=== PATIENT | female | born 1955 | race Caucasian/White ===

== ENCOUNTER 2016-11-16 13:19 | Emergency (ER) | payer BC ==
--- NOTE | 2016-11-16 13:23 | EDM.PDOC ---
ED HPI GENERAL MEDICAL PROBLEM - General Stated Complaint: POSSIBLY STROKE Time Seen by Provider: 11/16/16 13:23 Source of Information: Reports: Patient - History of Present Illness INITIAL COMMENTS - FREE TEXT/NARRATIVE: HISTORY AND PHYSICAL: History of present illness: []Patient presents with altered mental status and confusion by private vehicle Her daughter is with her seen her this morning at 9 AM she was doing well enjoying her normal state of health no difficulties whatsoever, on arrival she appears altered she does follow some commands but appears confused and belligerent, almost appearing intoxicated No apparent distress does not provide review of systems Review of systems: As per history of present illness and below otherwise all systems reviewed and negative. Past medical history: As per history of present illness and as reviewed below otherwise noncontributory. Surgical history: As per history of present illness and as reviewed below otherwise noncontributory. Social history: No reported history of drug or alcohol abuse. Family history: As per history of present illness and as reviewed below otherwise noncontributory. Physical exam: HEENT: Atraumatic, normocephalic, pupils reactive, negative for conjunctival pallor or scleral icterus, mucous membranes moist, throat clear, neck supple, nontender, trachea midline. Lungs: Clear to auscultation, breath sounds equal bilaterally, chest nontender. Heart: S1S2, regular, negative for clicks, rubs, or JVD. Abdomen: Soft, nondistended, nontender. Negative for masses or hepatosplenomegaly. Negative for costovertebral tenderness. Pelvis: Stable nontender. Genitourinary: Deferred. Rectal: Deferred. Extremities: Atraumatic, negative for cords or calf pain. Neurovascular unremarkable. Neuro: Awake, alert, oriented. Cranial nerves II through XII unremarkable. Cerebellum unremarkable. Motor and sensory unremarkable throughout. Exam nonfocal. GCS 14 Diagnostics: []Lab as below EKG Chest [address] abdomen pelvis and chest angioma Therapeutics: []Liter normal saline bolus Insulin 10 units IV Labetalol 10 mg IV Aspirin 324 mg chewable After extensive workup patient desires sign out AMA, she is currently lucid at time of discharge is still recommend she be observed her worked up further for stroke with MRI however patient states she has been noncompliant with her medications for several months and states she was faking earlier, I am not entirely convinced of this as apparently she tried to put a pillowcase on for pants while at home but currently she is alert and oriented 4, her daughter who is a nurse practitioner states mom is at her baseline, she will be taken her mother on weekends medical advice as the patient desires to leave she'll be keeping a nonionic mom and follow-up with primary care she can certainly return if symptoms persist or worsen or new concerning symptoms develop however currently mom is back to baseline and states she was malingering Impression: Glascow coma score is 14 []Confusion/AMS Hypertensive emergency Hyperglycemia Chronic history of baseline Definitive disposition and diagnosis as appropriate pending reevaluation and review of above. Headache Pain Score (Numeric/FACES): 0 - Related Data Allergies Allergy/AdvReac Type Severity Reaction Status Date / Time No Known Allergies Allergy Verified 11/16/16 13:36 Home Meds: Home Meds . [Unable to Verify Home Med List] 11/16/16 [History] ED ROS GENERAL - Review of Systems Review Of Systems: ROS reveals no pertinent complaints other than HPI. ED EXAM, GENERAL - Physical Exam Exam: See Below Course - Vital Signs Last Recorded V/S: Last Vital Signs Temp 37.7 C 11/16/16 17:05 Pulse 80 11/16/16 16:28 Resp 16 11/16/16 16:28 BP 177/79 H 11/16/16 17:14 Pulse Ox 97 11/16/16 16:28 - Orders/Labs/Meds Orders: Active Orders 24 hr Category Date Time Status Accu Check [Blood Glucose Check, Bedside] [RC] ONETIME Care 11/16/16 14:49 Active CTA Abd Pelv w Cont [CT] Stat Exams 11/16/16 16:26 Taken Chest 1V Frontal [CR] Stat Exams 11/16/16 13:21 Taken Head wo Cont [CT] Stat Exams 11/16/16 13:21 Taken Sodium Chloride 0.9% [Normal Saline] 1,000 ml Med 11/16/16 16:00 Active IV STAT Medication Orders Sodium Chloride (Normal Saline) 1,000 mls @ 125 mls/hr IV STAT COLLEEN Last Admin: 11/16/16 17:08 Dose: 125 mls/hr Labs: Laboratory Tests 11/16/16 11/16/16 11/16/16 Range/Units 13:22 13:22 13:22 WBC 11.27 H (4.0-11.0) K/uL RBC 5.14 (4.30-5.90) M/uL Hgb 15.3 (12.0-16.0) g/dL Hct 44.2 (36.0-46.0) % MCV 86.0 (80.0-98.0) fL MCH 29.8 (27.0-32.0) pg MCHC 34.6 (31.0-37.0) g/dL RDW Std Deviation 42.9 (28.0-62.0) fl RDW Coeff of [place]air[place] 14 (11.0-15.0) % Plt Count 298 (150-400) K/uL MPV 10.90 (7.40-12.00) fL Neut % (Auto) 84.6 H (48.0-80.0) % Lymph % (Auto) 8.3 L (16.0-40.0) % [place] % (Auto) 4.6 (0.0-15.0) % Eos % (Auto) 2.0 (0.0-7.0) % Baso % (Auto) 0.5 (0.0-1.5) % Neut # (Auto) 9.5 H (1.4-5.7) K/uL Lymph # (Auto) 0.9 (0.6-2.4) K/uL [place] # (Auto) 0.5 (0.0-0.8) K/uL Eos # (Auto) 0.2 (0.0-0.7) K/uL Baso # (Auto) 0.1 (0.0-0.1) K/uL Nucleated RBC % 0.0 /100WBC Nucleated RBCs # 0 K/uL INR 0.96 (0.86-1.11) Sodium 136 (136-146) mmol/L Potassium 3.5 (3.5-5.1) mmol/L Chloride 100 (98-110) mmol/L Carbon Dioxide 24 (21-31) mmol/L BUN 17 (6.0-23.0) mg/dL Creatinine 1.1 (0.6-1.5) mg/dL Est Cr Clr Drug Dosing TNP Estimated GFR (MDRD) 50.5 ml/min Glucose 454 H (60-110) mg/dL POC Glucose (60-110) mg/dL Calcium 9.8 (8.8-10.8) mg/dL Total Bilirubin 0.8 (0.1-1.5) mg/dL AST 19 (5-40) IU/L ALT 25 (8-54) IU/L Alkaline Phosphatase 114 (40-150) Creatine Kinase 57 (9-236) IU/L CK-MB (CK-2) 2.2 (0-6.6) ng/ml Troponin I (0.0-0.29) NG/ML Total Protein 8.6 H (6.0-8.0) g/dL Albumin 4.5 (3.4-4.8) g/dL Globulin 4.1 H (2.0-3.5) g/dL Albumin/Globulin Ratio 1.1 L (1.3-2.8) TSH 3rd Generation 1.36 (0.47-5.0) uIU/mL Urine Color Urine Appearance Urine pH (5.0-8.0) Ur Specific [place] (1.001-1.035) Urine Protein (NEGATIVE) mg/dL Urine Glucose (UA) (NEGATIVE) mg/dL Urine Ketones (NEGATIVE) mg/dL Urine Occult Blood (NEGATIVE) Urine Nitrite (NEGATIVE) Urine Bilirubin (NEGATIVE) Urine Urobilinogen (<2.0) EU/dL Ur Leukocyte Esterase (NEGATIVE) Urine RBC (0-2/HPF) Urine WBC (0-5/HPF) Ur Epithelial Cells (NONE-FEW) Urine Bacteria (NEGATIVE) Urine Opiates Screen (NEGATIVE) Ur Oxycodone Screen (NEGATIVE) Urine Methadone Screen (NEGATIVE) Ur Barbiturates Screen (NEGATIVE) Ur Phencyclidine Scrn (NEGATIVE) Ur Amphetamine Screen (NEGATIVE) U Methamphetamines Scrn (NEGATIVE) U Benzodiazepines Scrn (NEGATIVE) U Cocaine Metab Screen (NEGATIVE) U Marijuana (THC) Screen (NEGATIVE) Ethyl Alcohol < 10.0 mg/dL 11/16/16 11/16/16 11/16/16 Range/Units 13:22 13:25 13:59 WBC (4.0-11.0) K/uL RBC (4.30-5.90) M/uL Hgb (12.0-16.0) g/dL Hct (36.0-46.0) % MCV (80.0-98.0) fL MCH (27.0-32.0) pg MCHC (31.0-37.0) g/dL RDW Std Deviation (28.0-62.0) fl RDW Coeff of [place] (11.0-15.0) % Plt Count (150-400) K/uL MPV (7.40-12.00) fL Neut % (Auto) (48.0-80.0) % Lymph % (Auto) (16.0-40.0) % [place] % (Auto) (0.0-15.0) % Eos % (Auto) (0.0-7.0) % Baso % (Auto) (0.0-1.5) % Neut # (Auto) (1.4-5.7) K/uL Lymph # (Auto) (0.6-2.4) K/uL [place] # (Auto) (0.0-0.8) K/uL Eos # (Auto) (0.0-0.7) K/uL Baso # (Auto) (0.0-0.1) K/uL Nucleated RBC % /100WBC Nucleated RBCs # K/uL INR (0.86-1.11) Sodium (136-146) mmol/L Potassium (3.5-5.1) mmol/L Chloride (98-110) mmol/L Carbon Dioxide (21-31) mmol/L BUN (6.0-23.0) mg/dL Creatinine (0.6-1.5) mg/dL Est Cr Clr Drug Dosing Estimated GFR (MDRD) ml/min Glucose (60-110) mg/dL POC Glucose 404 H (60-110) mg/dL Calcium (8.8-10.8) mg/dL Total Bilirubin (0.1-1.5) mg/dL AST (5-40) IU/L ALT (8-54) IU/L Alkaline Phosphatase (40-150) Creatine Kinase (9-236) IU/L CK-MB (CK-2) (0-6.6) ng/ml Troponin I < 0.10 (0.0-0.29) NG/ML Total Protein (6.0-8.0) g/dL Albumin (3.4-4.8) g/dL Globulin (2.0-3.5) g/dL Albumin/Globulin Ratio (1.3-2.8) TSH 3rd Generation (0.47-5.0) uIU/mL Urine Color Urine Appearance Urine pH (5.0-8.0) Ur Specific [place] (1.001-1.035) Urine Protein (NEGATIVE) mg/dL Urine Glucose (UA) (NEGATIVE) mg/dL Urine Ketones (NEGATIVE) mg/dL Urine Occult Blood (NEGATIVE) Urine Nitrite (NEGATIVE) Urine Bilirubin (NEGATIVE) Urine Urobilinogen (<2.0) EU/dL Ur Leukocyte Esterase (NEGATIVE) Urine RBC (0-2/HPF) Urine WBC (0-5/HPF) Ur Epithelial Cells (NONE-FEW) Urine Bacteria (NEGATIVE) Urine Opiates Screen NEGATIVE (NEGATIVE) Ur Oxycodone Screen NEGATIVE (NEGATIVE) Urine Methadone Screen NEGATIVE (NEGATIVE) Ur Barbiturates Screen NEGATIVE (NEGATIVE) Ur Phencyclidine Scrn NEGATIVE (NEGATIVE) Ur Amphetamine Screen NEGATIVE (NEGATIVE) U Methamphetamines Scrn NEGATIVE (NEGATIVE) U Benzodiazepines Scrn NEGATIVE (NEGATIVE) U Cocaine Metab Screen NEGATIVE (NEGATIVE) U Marijuana (THC) Screen NEGATIVE (NEGATIVE) Ethyl Alcohol mg/dL 11/16/16 11/16/16 Range/Units 13:59 15:05 WBC (4.0-11.0) K/uL RBC (4.30-5.90) M/uL Hgb (12.0-16.0) g/dL Hct (36.0-46.0) % MCV (80.0-98.0) fL MCH (27.0-32.0) pg MCHC (31.0-37.0) g/dL RDW Std Deviation (28.0-62.0) fl RDW Coeff of [place] (11.0-15.0) % Plt Count (150-400) K/uL MPV (7.40-12.00) fL Neut % (Auto) (48.0-80.0) % Lymph % (Auto) (16.0-40.0) % [place] % (Auto) (0.0-15.0) % Eos % (Auto) (0.0-7.0) % Baso % (Auto) (0.0-1.5) % Neut # (Auto) (1.4-5.7) K/uL Lymph # (Auto) (0.6-2.4) K/uL [place] # (Auto) (0.0-0.8) K/uL Eos # (Auto) (0.0-0.7) K/uL Baso # (Auto) (0.0-0.1) K/uL Nucleated RBC % /100WBC Nucleated RBCs # K/uL INR (0.86-1.11) Sodium (136-146) mmol/L Potassium (3.5-5.1) mmol/L Chloride (98-110) mmol/L Carbon Dioxide (21-31) mmol/L BUN (6.0-23.0) mg/dL Creatinine (0.6-1.5) mg/dL Est Cr Clr Drug Dosing Estimated GFR (MDRD) ml/min Glucose (60-110) mg/dL POC Glucose 268 H (60-110) mg/dL Calcium (8.8-10.8) mg/dL Total Bilirubin (0.1-1.5) mg/dL AST (5-40) IU/L ALT (8-54) IU/L Alkaline Phosphatase (40-150) Creatine Kinase (9-236) IU/L CK-MB (CK-2) (0-6.6) ng/ml Troponin I (0.0-0.29) NG/ML Total Protein (6.0-8.0) g/dL Albumin (3.4-4.8) g/dL Globulin (2.0-3.5) g/dL Albumin/Globulin Ratio (1.3-2.8) TSH 3rd Generation (0.47-5.0) uIU/mL Urine Color YELLOW Urine Appearance CLEAR Urine pH 7.0 (5.0-8.0) Ur Specific [place] 1.015 (1.001-1.035) Urine Protein 30 (NEGATIVE) mg/dL Urine Glucose (UA) >=1000 (NEGATIVE) mg/dL Urine Ketones TRACE H (NEGATIVE) mg/dL Urine Occult Blood TRACE-INTACT (NEGATIVE) Urine Nitrite NEGATIVE (NEGATIVE) Urine Bilirubin NEGATIVE (NEGATIVE) Urine Urobilinogen 0.2 (<2.0) EU/dL Ur Leukocyte Esterase NEGATIVE (NEGATIVE) Urine RBC 0-2 (0-2/HPF) Urine WBC 0-1 (0-5/HPF) Ur Epithelial Cells FEW (NONE-FEW) Urine Bacteria FEW (NEGATIVE) Urine Opiates Screen (NEGATIVE) Ur Oxycodone Screen (NEGATIVE) Urine Methadone Screen (NEGATIVE) Ur Barbiturates Screen (NEGATIVE) Ur Phencyclidine Scrn (NEGATIVE) Ur Amphetamine Screen (NEGATIVE) U Methamphetamines Scrn (NEGATIVE) U Benzodiazepines Scrn (NEGATIVE) U Cocaine Metab Screen (NEGATIVE) U Marijuana (THC) Screen (NEGATIVE) Ethyl Alcohol mg/dL Meds: Medications Generic Name Dose Route Start Last Admin Trade Name Freq PRN Reason Stop Dose Admin Sodium Chloride 1,000 mls @ 125 mls/hr 11/16/16 16:00 11/16/16 17:08 Normal Saline IV 125 mls/hr STAT COLLEEN Administration Discontinued Medications Generic Name Dose Route Start Last Admin Trade Name Freq PRN Reason Stop Dose Admin Aspirin 324 mg 11/16/16 14:20 11/16/16 14:26 Aspirin PO 11/16/16 14:21 324 mg ONETIME ONE Administration Sodium Chloride 1,000 mls @ 999 mls/hr 11/16/16 13:53 11/16/16 14:21 Normal Saline IV 11/16/16 14:53 999 mls/hr STAT ONE Administration Insulin Human Regular 10 unit 11/16/16 13:53 11/16/16 14:20 Novolin R IVPUSH 11/16/16 13:54 10 ml ONETIME ONE Administration Protocol Iopamidol 80 ml 11/16/16 15:33 11/16/16 15:34 Isovue Multipack-370 (76%) IVPUSH 11/16/16 15:34 80 ml ONETIME STA Administration Labetalol HCl 10 mg 11/16/16 14:19 11/16/16 14:29 Normodyne IVPUSH 11/16/16 14:20 Not Given .BOLUS ONE Protocol Labetalol HCl Confirm 11/16/16 14:23 11/16/16 14:27 Normodyne Administered 11/16/16 14:24 10 mg Dose Administration 100 mg .ROUTE .STK-MED ONE Labetalol HCl 20 mg 11/16/16 14:48 11/16/16 15:09 Normodyne IVPUSH 11/16/16 14:49 Not Given .BOLUS ONE Protocol Labetalol HCl 20 mg 11/16/16 15:00 11/16/16 15:03 Normodyne IVPUSH 11/16/16 15:01 20 mg .BOLUS ONE Administration Protocol Labetalol HCl 20 mg 11/16/16 15:11 11/16/16 15:21 Normodyne IVPUSH 11/16/16 15:12 20 mg .BOLUS ONE Administration Protocol Lorazepam 1 mg 11/16/16 13:37 11/16/16 14:20 Ativan IVPUSH 11/16/16 13:38 1 mg ONETIME ONE Administration Lorazepam Confirm 11/16/16 13:38 11/16/16 14:21 Ativan Administered 11/16/16 13:39 Not Given Dose 2 mg .ROUTE .STK-MED ONE Departure - Departure Time of Disposition: 18:25 Disposition: Against Medical Advice 07 Condition: Fair Clinical Impression: Hyperglycemia, Noncompliance with medications - Discharge Information Additional Instructions: The following information is given to patients seen in the emergency department who are being discharged to home. This information is to outline your options for follow-up care. We provide all patients seen in our emergency department with a follow-up referral. The need for follow-up, as well as the timing and circumstances, are variable depending upon the specifics of your emergency department visit. If you don't have a primary care physician on staff, we will provide you with a referral. We always advise you to contact your personal physician following an emergency department visit to inform them of the circumstance of the visit and for follow-up with them and/or the need for any referrals to a consulting specialist. The emergency department will also refer you to a specialist when appropriate. This referral assures that you have the opportunity for follow-up care with a specialist. All of these measure are taken in an effort to provide you with optimal care, which includes your follow-up. Under all circumstances we always encourage you to contact your private physician who remains a resource for coordinating your care. When calling for follow-up care, please make the office aware that this follow-up is from your recent emergency room visit. If for any reason you are refused follow-up, please contact the [facility] emergency department at and asked to speak to the emergency department charge nurse. - My Orders Last 24 Hours: My Active Orders 11/16/16 13:21 Chest 1V Frontal [CR] Stat Head wo Cont [CT] Stat 11/16/16 14:49 Accu Check [Blood Glucose Check, Bedside] [RC] ONETIME 11/16/16 16:00 Sodium Chloride 0.9% [Normal Saline] 1,000 ml IV STAT 11/16/16 16:26 CTA Abd Pelv w Cont [CT] Stat - Assessment/Plan Last 24 Hours: My Active Orders 11/16/16 13:21 Chest 1V Frontal [CR] Stat Head wo Cont [CT] Stat 11/16/16 14:49 Accu Check [Blood Glucose Check, Bedside] [RC] ONETIME 11/16/16 16:00 Sodium Chloride 0.9% [Normal Saline] 1,000 ml IV STAT 11/16/16 16:26 CTA Abd Pelv w Cont [CT] Stat
[2016-11-16] MEDS ORDERED: LORazepam 2 MG/ML MDV IVPUSH ONE (13:37)
[2016-11-16] MEDS ORDERED: LORazepam 2 MG/ML MDV ONE (13:38)
[2016-11-16] MEDS ORDERED: Insulin Regular, Human 100 Units/ML 10 ML Vial IVPUSH ONE (13:53)
[2016-11-16] MEDS ORDERED: Sodium Chloride 0.9% 1,000 ML IV ONE (13:53)
[2016-11-16 13:54] LABS: CHLORIDE,CL 100 mmol/L (98-110); SODIUM,NA 136 mmol/L (136-146)
[2016-11-16] MEDS ORDERED: Labetalol 5 MG/ML 5 ML Syringe IVPUSH ONE ×3 (14:19→15:11)
[2016-11-16] MEDS ORDERED: Aspirin 81 MG Tab.Chew PO ONE (14:20)
[2016-11-16] MEDS ORDERED: Labetalol 100 MG/20 ML MDV ONE (14:23)
[2016-11-16] MEDS ORDERED: Labetalol 100 MG/20 ML MDV IVPUSH ONE (15:00)
[2016-11-16] MEDS ORDERED: Iopamidol 755 MG/ML 500 ML Multipack Bottle IVPUSH STA (15:33)
[2016-11-16] MEDS ORDERED: Sodium Chloride 0.9% 1,000 ML IV SCH (16:00)
[2016-11-16 18:47] VITALS: BP 198/91
--- NOTE | 2016-11-18 14:56 | CR ---
EXAM DATE: 11/16/16 PATIENT'S AGE: 61 Patient: JORDYN DUVALL Facility: [place], [place] Site . Site : 1955 Study: XRay Chest [id number] 2:00:49 PM Ordering Physician: Van Millan Final Report: Confusion technique portable chest aorta.Comparison: X-ray 01/16/2012 Findings : Cardiac silhouette is mildly enlarged. Aorta is tortuous and appears changed from the prior study. Pulmonary vascularity is within normal limits appear no acute airspace or interstitial process. Impression: 1. No acute Acute airspace interstitial process. 2. Tortuous aorta which appears changed in the prior study and may reflect thoracic aortic aneurysm. Recommend contrast-enhanced chest CT. Dictated by Denise Florence MD @ Nov 16 2016 2:34PM (Electronic Signature) Report Signed by Proxy. PAWAN
--- NOTE | 2016-11-18 14:57 | CT ---
EXAM DATE: 11/16/16 PATIENT'S AGE: 61 Patient: JORDYN DUVALL Facility: [place], [place] Site . Site : 1955 Study: CT Head STROKE PROTOCOL [id number]/2017 2:04:47 PM Ordering Physician: Van Millan Final Report: Indication: Confusion, disorientation. Stroke protocol. Technique: Contiguous axial images were obtained with 3 mm collimation from the skullbase to the vertex. The patient was unable to remain motionless for the examination and the head was fixated with hand. Beam hardening artifact from the adjacent hand bones markedly limits evaluation of the study. Comparison: CT head 01/16/2012. Findings: The visualized ventricles are midline, symmetric, and are of normal size shape and contour. There is no obvious intracranial hemorrhage but intracranial hemorrhage in the left posterior parietal lobe cannot entirely be excluded. Of the visualized melgar/white matter junction, there is preservation of the junction. There are no obvious masses on this unenhanced CT scan. Evaluation the visualized paranasal sinuses again demonstrates a retention cyst or polyp in the right maxillary sinus measuring 2.5 x 1.5 cm. The remaining visual lies paranasal sinuses and mastoid air cells are normally aerated. Impression: Examination degraded by beam hardening artifact. No obvious in acute intracranial abnormality. If there is continued clinical concern consider repeat examination. Above results abd recommendations were discussed with Dr. Araujo, by telephone , at 2:10 p.m. on 11/15/2016. Please note that all CT scans at this facility use dose modulation, iterative reconstruction, and/or weight-based dosing when appropriate to reduce radiation dose to as low as reasonably achievable. Dictated by Amber Ghosh MD @ Nov 16 2016 2:11PM (Electronic Signature) Report Signed by Proxy. [facility]
--- NOTE | 2016-11-18 15:06 | CT ---
EXAM DATE: 11/16/16 PATIENT'S AGE: 61 Patient: JORDYN DUVALL Facility: [place], [place] Site Site : 1955 Study: CT Chest/Abd/Pelvis Angio -11/16/2016 5:14:37 PM Ordering Physician: ANA LILIA ARREAGA Final Report: INDICATION: Chest pain. TECHNIQUE : CT scan of the chest abdomen and pelvis. Precontrast imaging of the chest. Arterial phase imaging of the chest, abdomen and pelvis for evaluation of the aorta. FINDINGS: Precontrast images of the aorta demonstrate no abnormal intramural hematoma. The thoracic and abdominal aorta are normal caliber. The branches of the aorta are patent. No suspicious intraluminal dissection flap. Heart size is normal. No pericardial or pleural effusions. Lungs are clear. No abdominal mass lesions. No suspicious lymphadenopathy. Unremarkable liver, spleen, pancreas, adrenal glands and kidneys. No dilated bowel loops. No hydronephrosis. The bladder appears unremarkable. Uterus is normal in size. No suspicious skeletal abnormalities. IMPRESSION : No signs for aortic dissection. Mild atherosclerotic plaques in the abdominal aorta. No additional acute findings. Please note that all CT scans at this facility use dose modulation, iterative reconstruction, and/or weight-based dosing when appropriate to reduce radiation dose to as low as reasonably achievable. Dictated by Noah Orozco MD @ Nov 16 2016 5:34PM (Electronic Signature) Report Signed by Proxy. [facility]
== END 2016-11-16 18:34 | disposition left against medical advice (07) ==
LOC: MW.ED 13:19
DX: R73.9 Hyperglycemia, unspecified (principal); I10 Essential (primary) hypertension; R41.82 Altered mental status, unspecified; Z91.14 Patient's other noncompliance with medication regimen
CPT/HCPCS: 36415; 70450; 71010; 74174; 80053; 80306; 81001; 82550; 82553; 82962; 84443; 84484; 85025; 85610; 93005; 96361; 96374; 96375; 96376; 99285; A9270; G0480; J2060; J7040; Q9967; 80305; 99283; J1815-GY

== ENCOUNTER 2017-07-01 14:06 | Emergency (ER) | payer BC ==
[2017-07-01] MEDS ORDERED: Sodium Chloride 0.9% 10 ML Syringe FLUSH PRN (15:00)
[2017-07-01] MEDS ORDERED: Sodium Chloride 0.9% 2.5 ML Syringe FLUSH PRN (15:00)
[2017-07-01] MEDS ORDERED: Lactated Ringers 1,000 ML IV ONE (15:00)
--- NOTE | 2017-07-01 15:24 | EDM.PDOC ---
ED HPI GENERAL MEDICAL PROBLEM - General Chief Complaint: General Stated Complaint: MEDICAL CLEARANCE Time Seen by Provider: 07/01/17 14:35 Source of Information: Reports: Patient History Limitations: Reports: No Limitations - History of Present Illness INITIAL COMMENTS - FREE TEXT/NARRATIVE: History of present illness: []Patient was brought in by police for medical clearance after reckless driving. Patient is a diabetic and has had episodes with infection where she has had psychotic symptoms. Patient had several episodes of vomiting 2 days ago and has not been feeling well. She denies any drug or alcohol use. Review of systems: As per history of present illness and below otherwise all systems reviewed and negative. Past medical history: As per history of present illness and as reviewed below otherwise noncontributory. Surgical history: As per history of present illness and as reviewed below otherwise noncontributory. Social history: No reported history of drug or alcohol abuse. Family history: As per history of present illness and as reviewed below otherwise noncontributory. Physical exam: General: Well developed, well nourished in NAD, answering questions appropriately HEENT: Atraumatic, normocephalic, pupils reactive, negative for conjunctival pallor or scleral icterus, mucous membranes moist, throat clear, neck supple, nontender, trachea midline. Lungs: Clear to auscultation, breath sounds equal bilaterally, chest nontender. Heart: S1S2, regular, negative for clicks, rubs, or JVD. Abdomen: Soft, nondistended, nontender. Negative for masses or hepatosplenomegaly. Negative for costovertebral tenderness. Pelvis: Stable nontender. Genitourinary: Deferred. Rectal: Deferred. Extremities: Atraumatic, negative for cords or calf pain. Neurovascular unremarkable. Neuro: Awake, alert, oriented. Cranial nerves II through XII unremarkable. Cerebellum unremarkable. Motor and sensory unremarkable throughout. Exam nonfocal. Diagnostics: []CBC normal, chemistries BUN/creatinine 74/3.0, CO2 is 23, glucose is 223, lactic acid is negative, urine is negative tox screen positive for PCP Therapeutics: []IV hydrated Impression: []Dehydration, altered mental status, positive PCP on tox screen Plan: []Follow-up with PMD Definitive disposition and diagnosis as appropriate pending reevaluation and review of above. - Related Data Allergies Allergy/AdvReac Type Severity Reaction Status Date / Time No Known Allergies Allergy Verified 07/01/17 14:30 Home Meds: Home Meds . [Unable to Verify Home Med List] 11/16/16 [History] Past Medical History Cardiovascular History: Reports: Angina, Hypertension Genitourinary History: Reports: None Neurological History: Reports: Other (See Below) Other Neuro History: encephalitis Endocrine/Metabolic History: Reports: Diabetes, Type II - Infectious Disease History Infectious Disease History: Reports: Chicken Pox, Shingles - Past Surgical History Cardiovascular Surgical History: Reports: None Female Surgical History: Reports: Section Neurological Surgical History: Reports: None Social & Family History - Family History Family Medical History: Unobtainable - Tobacco Use Smoking Status *Q: Never Smoker - Recreational Drug Use Recreational Drug Use: No ED ROS GENERAL - Review of Systems Review Of Systems: See Below (See history of present illness) ED EXAM, GENERAL - Physical Exam Exam: See Below (See history of present illness) Course - Vital Signs Last Recorded V/S: Last Vital Signs Temp 97.0 F 07/01/17 14:28 Pulse 84 07/01/17 14:28 Resp 18 07/01/17 14:28 BP 187/89 H 07/01/17 14:28 Pulse Ox 93 L 07/01/17 14:28 - Orders/Labs/Meds Orders: Active Orders 24 hr Category Date Time Status DRUG SCREEN, URINE [URCHEM] Stat Lab 07/01/17 16:11 Ordered UA W/MICROSCOPIC [URIN] Stat Lab 07/01/17 16:11 Ordered Sodium Chloride 0.9% [Saline Flush] Med 07/01/17 15:00 Active 10 ml FLUSH ASDIRECTED PRN Sodium Chloride 0.9% [Saline Flush] Med 07/01/17 15:00 Active 2.5 ml FLUSH ASDIRECTED PRN Saline Lock Insert [OM.PC] Stat Oth 07/01/17 15:00 Ordered Medication Orders Sodium Chloride (Saline Flush) 10 ml FLUSH ASDIRECTED PRN PRN Reason: Keep Vein Open Last Admin: 07/01/17 15:26 Dose: 10 ml Sodium Chloride (Saline Flush) 2.5 ml FLUSH ASDIRECTED PRN PRN Reason: Keep Vein Open Last Admin: 07/01/17 15:26 Dose: 2.5 ml Labs: Laboratory Tests 07/01/17 07/01/1707/01/18 Range/Units 14:34 15:13 15:13 WBC 9.71 (4.0-11.0) K/uL RBC 5.45 (4.30-5.90) M/uL Hgb 15.6 (12.0-16.0) g/dL Hct 46.2 H (36.0-46.0) % MCV 84.8 (80.0-98.0) fL MCH 28.6 (27.0-32.0) pg MCHC 33.8 (31.0-37.0) g/dL RDW Std Deviation 44.8 (28.0-62.0) fl RDW Coeff of [place] 15 (11.0-15.0) % Plt Count 241 (150-400) K/uL MPV 10.70 (7.40-12.00) fL Neut % (Auto) 72.4 (48.0-80.0) % Lymph % (Auto) 11.9 L (16.0-40.0) % Teller % (Auto) 12.4 (0.0-15.0) % Eos % (Auto) 2.9 (0.0-7.0) % Baso % (Auto) 0.4 (0.0-1.5) % Neut # (Auto) 7.0 H (1.4-5.7) K/uL Lymph # (Auto) 1.2 (0.6-2.4) K/uL Teller # (Auto) 1.2 H (0.0-0.8) K/uL Eos # (Auto) 0.3 (0.0-0.7) K/uL Baso # (Auto) 0.0 (0.0-0.1) K/uL Nucleated RBC % 0.0 /100WBC Nucleated RBCs # 0 K/uL Lactate 1.4 (0.20-2.00) mmol/L Sodium (136-145) mmol/L Potassium (3.5-5.1) mmol/L Chloride (98-107) mmol/L Carbon Dioxide (21.0-32.0) mmol/L BUN (7.0-18.0) mg/dL Creatinine (0.6-1.0) mg/dL Est Cr Clr Drug Dosing mL/min Estimated GFR (MDRD) ml/min Glucose (74-106) mg/dL POC Glucose 235 H (60-110) mg/dL Calcium (8.5-10.1) mg/dL Total Bilirubin (0.2-1.0) mg/dL AST (15-37) IU/L ALT (14-63) IU/L Alkaline Phosphatase (46-116) U/L Total Protein (6.4-8.2) g/dL Albumin (3.4-5.0) g/dL Globulin (2.0-3.5) g/dL Albumin/Globulin Ratio (1.3-2.8) Urine Color Urine Appearance Urine pH (5.0-8.0) Ur Specific [place] (1.001-1.035) Urine Protein (NEGATIVE) mg/dL Urine Glucose (UA) (NEGATIVE) mg/dL Urine Ketones (NEGATIVE) mg/dL Urine Occult Blood (NEGATIVE) Urine Nitrite (NEGATIVE) Urine Bilirubin (NEGATIVE) Urine Urobilinogen (<2.0) EU/dL Ur Leukocyte Esterase (NEGATIVE) Urine RBC (0-2/HPF) Urine WBC (0-5/HPF) Ur Epithelial Cells (NONE-FEW) Urine Bacteria (NEGATIVE) Urine Opiates Screen (NEGATIVE) Ur Oxycodone Screen (NEGATIVE) Urine Methadone Screen (NEGATIVE) Ur Barbiturates Screen (NEGATIVE) Ur Phencyclidine Scrn (NEGATIVE) Ur Amphetamine Screen (NEGATIVE) U Methamphetamines Scrn (NEGATIVE) U Benzodiazepines Scrn (NEGATIVE) U Cocaine Metab Screen (NEGATIVE) U Marijuana (THC) Screen (NEGATIVE) 07/01/17 07/01/17 07/01/17 Range/Units 15:13 16:11 16:11 WBC (4.0-11.0) K/uL RBC (4.30-5.90) M/uL Hgb (12.0-16.0) g/dL Hct (36.0-46.0) % MCV (80.0-98.0) fL MCH (27.0-32.0) pg MCHC (31.0-37.0) g/dL RDW Std Deviation (28.0-62.0) fl RDW Coeff of [place] (11.0-15.0) % Plt Count (150-400) K/uL MPV (7.40-12.00) fL Neut % (Auto) (48.0-80.0) % Lymph % (Auto) (16.0-40.0) % Teller % (Auto) (0.0-15.0) % Eos % (Auto) (0.0-7.0) % Baso % (Auto) (0.0-1.5) % Neut # (Auto) (1.4-5.7) K/uL Lymph # (Auto) (0.6-2.4) K/uL Teller # (Auto) (0.0-0.8) K/uL Eos # (Auto) (0.0-0.7) K/uL Baso # (Auto) (0.0-0.1) K/uL Nucleated RBC % /100WBC Nucleated RBCs # K/uL Lactate (0.20-2.00) mmol/L Sodium 138 (136-145) mmol/L Potassium 3.7 (3.5-5.1) mmol/L Chloride 101 (98-107) mmol/L Carbon Dioxide 23.0 (21.0-32.0) mmol/L BUN 74 H (7.0-18.0) mg/dL Creatinine 3.0 H (0.6-1.0) mg/dL Est Cr Clr Drug Dosing 15.57 mL/min Estimated GFR (MDRD) 15.9 ml/min Glucose 229 H (74-106) mg/dL POC Glucose (60-110) mg/dL Calcium 9.5 (8.5-10.1) mg/dL Total Bilirubin 0.4 (0.2-1.0) mg/dL AST 14 L (15-37) IU/L ALT 22 (14-63) IU/L Alkaline Phosphatase 83 (46-116) U/L Total Protein 7.5 (6.4-8.2) g/dL Albumin 3.9 (3.4-5.0) g/dL Globulin 3.6 H (2.0-3.5) g/dL Albumin/Globulin Ratio 1.1 L (1.3-2.8) Urine Color YELLOW Urine Appearance CLEAR Urine pH 5.0 (5.0-8.0) Ur Specific [place] >= 1.030 (1.001-1.035) Urine Protein TRACE (NEGATIVE) mg/dL Urine Glucose (UA) NEGATIVE (NEGATIVE) mg/dL Urine Ketones TRACE H (NEGATIVE) mg/dL Urine Occult Blood NEGATIVE (NEGATIVE) Urine Nitrite NEGATIVE (NEGATIVE) Urine Bilirubin NEGATIVE (NEGATIVE) Urine Urobilinogen 0.2 (<2.0) EU/dL Ur Leukocyte Esterase NEGATIVE (NEGATIVE) Urine RBC 0-1 (0-2/HPF) Urine WBC 0-1 (0-5/HPF) Ur Epithelial Cells RARE (NONE-FEW) Urine Bacteria RARE (NEGATIVE) Urine Opiates Screen NEGATIVE (NEGATIVE) Ur Oxycodone Screen NEGATIVE (NEGATIVE) Urine Methadone Screen NEGATIVE (NEGATIVE) Ur Barbiturates Screen NEGATIVE (NEGATIVE) Ur Phencyclidine Scrn POSITIVE (NEGATIVE) Ur Amphetamine Screen NEGATIVE (NEGATIVE) U Methamphetamines Scrn NEGATIVE (NEGATIVE) U Benzodiazepines Scrn NEGATIVE (NEGATIVE) U Cocaine Metab Screen NEGATIVE (NEGATIVE) U Marijuana (THC) Screen NEGATIVE (NEGATIVE) Meds: Medications Generic Name Dose Route Start Last Admin Trade Name Freq PRN Reason Stop Dose Admin Sodium Chloride 10 ml 07/01/17 15:00 07/01/17 15:26 Saline Flush FLUSH 10 ml ASDIRECTED PRN Administration Keep Vein Open Sodium Chloride 2.5 ml 07/01/17 15:00 07/01/17 15:26 Saline Flush FLUSH 2.5 ml ASDIRECTED PRN Administration Keep Vein Open Discontinued Medications Generic Name Dose Route Start Last Admin Trade Name Freq PRN Reason Stop Dose Admin Lactated Ringer's 1,000 mls @ 999 mls/hr 07/01/17 15:00 07/01/17 15:26 Ringers, Lactated IV 07/01/17 16:00 999 mls/hr .BOLUS ONE Administration Departure - Departure Time of Disposition: 16:57 Disposition: Home, Self-Care 01 Condition: Good Clinical Impression: Dehydration, Altered mental status, PCP delusional disorder - Discharge Information Referrals: PCP,None [Primary Care Provider] - Forms: ED Department Discharge Additional Instructions: The following information is given to patients seen in the emergency department who are being discharged to home. This information is to outline your options for follow-up care. We provide all patients seen in our emergency department with a follow-up referral. The need for follow-up, as well as the timing and circumstances, are variable depending upon the specifics of your emergency department visit. If you don't have a primary care physician on staff, we will provide you with a referral. We always advise you to contact your personal physician following an emergency department visit to inform them of the circumstance of the visit and for follow-up with them and/or the need for any referrals to a consulting specialist. The emergency department will also refer you to a specialist when appropriate. This referral assures that you have the opportunity for follow-up care with a specialist. All of these measure are taken in an effort to provide you with optimal care, which includes your follow-up. Under all circumstances we always encourage you to contact your private physician who remains a resource for coordinating your care. When calling for follow-up care, please make the office aware that this follow-up is from your recent emergency room visit. If for any reason you are refused follow-up, please contact the [facility] Emergency Department at and asked to speak to the emergency department charge nurse. Increase fluids follow-up with her primary care within a week. [facility] [address] [place] [address] - My Orders Last 24 Hours: My Active Orders 07/01/17 15:00 Sodium Chloride 0.9% [Saline Flush] 10 ml FLUSH ASDIRECTED PRN Sodium Chloride 0.9% [Saline Flush] 2.5 ml FLUSH ASDIRECTED PRN Saline Lock Insert [OM.PC] Stat 07/01/17 16:11 DRUG SCREEN, URINE [URCHEM] Stat UA W/MICROSCOPIC [URIN] Stat - Assessment/Plan Last 24 Hours: My Active Orders 07/01/17 15:00 Sodium Chloride 0.9% [Saline Flush] 10 ml FLUSH ASDIRECTED PRN Sodium Chloride 0.9% [Saline Flush] 2.5 ml FLUSH ASDIRECTED PRN Saline Lock Insert [OM.PC] Stat 07/01/17 16:11 DRUG SCREEN, URINE [URCHEM] Stat UA W/MICROSCOPIC [URIN] Stat
[2017-07-01 17:28] VITALS: BP 174/90
== END 2017-07-01 17:25 | disposition home or self-care (01) ==
LOC: MW.ED 14:06
DX: E86.0 Dehydration (principal); R41.82 Altered mental status, unspecified; F16.950 Hallucinogen use, unspecified with hallucinogen-induced psychotic disorder with delusions; E11.9 Type 2 diabetes mellitus without complications; I10 Essential (primary) hypertension
CPT/HCPCS: 36415; 80053; 80305; 81001; 82962; 83605; 85025; 96360; 96361; 99283; J7120

== ENCOUNTER 2019-09-09 21:32 | Inpatient (IN) | payer BC, OTHER, SELFPAY ==
[2019-09-09] MEDS ORDERED: Sodium Chloride 0.9% 10 ML SDV IV PRN (21:34)
[2019-09-09] MEDS ORDERED: Sodium Chloride 0.9% 2.5 ML Syringe FLUSH PRN (21:34)
[2019-09-09] MEDS ORDERED: Sodium Chloride 0.9% 10 ML Syringe FLUSH PRN (21:34)
[2019-09-09] MEDS ORDERED: diphenhydrAMINE 50 MG/ML SDV ONE (22:13)
[2019-09-09] MEDS ORDERED: LORazepam 2 MG/ML SDV ONE (22:13)
[2019-09-09 22:14] LABS: BLOOD UREA NITROGEN,BUN 29 mg/dL (7.0-18.0); CHLORIDE,CL 105 mmol/L (98-107); GLUCOSE RANDOM 172 mg/dL (74-106); POTASSIUM,K 3.5 mmol/L (3.5-5.1); SODIUM,NA 145 mmol/L (136-145)
[2019-09-09] MEDS ORDERED: diphenhydrAMINE 50 MG/ML SDV IVPUSH ONE (22:14)
[2019-09-09] MEDS ORDERED: LORazepam 2 MG/ML SDV IVPUSH ONE (22:14)
--- NOTE | 2019-09-09 22:18 | EDM.PDOC ---
ED HPI GENERAL MEDICAL PROBLEM - General Chief Complaint: Neuro Symptoms/Deficits Stated Complaint: EMS ARRIVAL Time Seen by Provider: 09/09/19 21:34 Source of Information: Reports: Patient, EMS History Limitations: Reports: Altered Mental Status - History of Present Illness INITIAL COMMENTS - FREE TEXT/NARRATIVE: History of present illness: [Patient is 63-year-old female presents by EMS for altered mental status. Neighbor called EMS because the patient was wandering around his front yard and then spent time sitting on her chair on her porch and appeared to be confused. EMS reports that the patient has some slurred speech and occasionally can answer questions appropriately, she knows who she is and what city she is in but she cannot really hold a conversation beyond that. She denies pain anywhere specifically. Unknown last known well. Patient denies any falls or major trauma or any other specific complaints.] Review of systems: As per history of present illness and below otherwise all systems reviewed and negative. Past medical history: As per history of present illness and as reviewed below otherwise noncontributory. Surgical history: As per history of present illness and as reviewed below otherwise noncontributory. Social history: No reported history of drug or alcohol abuse. Family history: As per history of present illness and as reviewed below otherwise noncontributory. Physical exam: General: Awake, alert, no acute distress, A&O X2. Appears confused, answers some questions appropriately but is not conversational and follows commands only intermittently HEENT: Atraumatic, normocephalic, pupils reactive, negative for conjunctival pallor or scleral icterus, mucous membranes moist, throat clear, neck supple, nontender, trachea midline. Lungs: Clear to auscultation, breath sounds equal bilaterally, chest nontender. Heart: RRR, normal S1S2, no JVD. Abdomen: Soft, nondistended, nontender. Negative for masses or hepatosplenomegaly. Negative for costovertebral tenderness. Pelvis: Stable nontender. Genitourinary: Deferred. Rectal: Deferred. Extremities: Atraumatic, no edema, Neurovascular unremarkable. Neuro: Motor and sensory grossly intact throughout. Exam nonfocal. NIH 0. Diagnostics: [] Therapeutics: [] Impression: [] Plan: [] Definitive disposition and diagnosis as appropriate pending reevaluation and review of above. - Related Data Allergies Allergy/AdvReac Type Severity Reaction Status Date / Time No Known Allergies Allergy Verified 07/01/17 14:30 Home Meds: Home Meds . [Unable to Verify Home Med List] 11/16/16 [History] Past Medical History Cardiovascular History: Reports: Angina, Hypertension Genitourinary History: Reports: None Neurological History: Reports: Other (See Below) Other Neuro History: encephalitis Endocrine/Metabolic History: Reports: Diabetes, Type II - Infectious Disease History Infectious Disease History: Reports: Chicken Pox, Shingles - Past Surgical History Cardiovascular Surgical History: Reports: None Female Surgical History: Reports: Section Neurological Surgical History: Reports: None Social & Family History - Family History Family Medical History: Unobtainable - Tobacco Use Smoking Status *Q: Unknown Ever Smoked ED ROS GENERAL - Review of Systems Review Of Systems: Comprehensive ROS is negative, except as noted in HPI. ED EXAM, NEURO - Physical Exam Exam: See Below (see h and p) Course - Vital Signs Last Recorded V/S: Last Vital Signs Temp 37.0 C 09/09/19 21:32 Pulse 56 L 09/09/19 23:59 Resp 14 09/09/19 23:59 BP 157/87 H 09/09/19 23:59 Pulse Ox 97 09/09/19 23:59 - Orders/Labs/Meds Orders: Active Orders 24 hr Category Date Time Status Assess Neurological Status [RC] ASDIRECTED Care 09/09/19 21:34 Active Bedrest [RC] ASDIRECTED Care 09/09/19 21:34 Active Blood Glucose Check, Bedside [RC] STAT Care 09/09/19 21:34 Active Cardiac Monitoring [RC] . DIRECTED Care 09/09/19 21:34 Active EKG Documentation Completion [RC] STAT Care 09/09/19 21:34 Active Height and Weight [RC] UPON Care 09/09/19 21:34 Active Initiate Acute Stroke Protocol [RC] STAT Care 09/09/19 21:34 Active NIH Stroke Scale [RC] ASDIRECTED Care 09/09/19 21:34 Active Nursing Bedside Swallow Screen [RC] ASDIRECTED Care 09/09/19 21:34 Active Oxygen Therapy [RC] ASDIRECTED Care 09/09/19 21:34 Active Stroke Education, General [RC] Click to Edit Care 09/09/19 21:34 Active Vital Signs [RC] Q15M Care 09/09/19 21:34 Active Sodium Chloride 0.9% [Saline Flush] Med 09/09/19 21:34 Active 10 ml FLUSH ASDIRECTED PRN Sodium Chloride 0.9% [Saline Flush] Med 09/09/19 21:34 Active 2.5 ml FLUSH ASDIRECTED PRN Peripheral IV Insertion Adult [OM.PC] Stat Oth 09/09/19 21:34 Ordered Peripheral IV Insertion Adult [OM.PC] Stat Ot 09/09/19 21:34 Ordered Medication Orders Sodium Chloride (Normal Saline) 1,000 mls @ 125 mls/hr IV ASDIRECTED COLLEEN Last Admin: 09/10/19 02:18 Dose: 125 mls/hr Sodium Chloride (Saline Flush) 10 ml FLUSH ASDIRECTED PRN PRN Reason: Keep Vein Open Last Admin: 09/09/19 22:17 Dose: 10 ml Sodium Chloride (Saline Flush) 2.5 ml FLUSH ASDIRECTED PRN PRN Reason: Keep Vein Open Last Admin: 09/09/19 22:17 Dose: 2.5 ml Labs: Laboratory Tests 09/09/19 09/09/19 09/09/19 Range/Units 21:34 21:34 21:34 WBC 13.81 H (4.0-11.0) K/uL RBC 5.06 (4.30-5.90) M/uL Hgb 15.2 (12.0-16.0) g/dL Hct 44.7 (36.0-46.0) % MCV 88.3 (80.0-98.0) fL MCH 30.0 (27.0-32.0) pg MCHC 34.0 (31.0-37.0) g/dL RDW Std Deviation 44.1 (28.0-62.0) fl RDW Coeff of [place] 14 (11.0-15.0) % Plt Count 237 (150-400) K/uL MPV 11.70 (7.40-12.00) fL Neut % (Auto) 82.6 H (48.0-80.0) % Lymph % (Auto) 8.3 L (16.0-40.0) % [place] % (Auto) 8.9 (0.0-15.0) % Eos % (Auto) 0.1 (0.0-7.0) % Baso % (Auto) 0.1 (0.0-1.5) % Neut # (Auto) 11.4 H (1.4-5.7) K/uL Lymph # (Auto) 1.1 (0.6-2.4) K/uL [place] # (Auto) 1.2 H (0.0-0.8) K/uL Eos # (Auto) 0.0 (0.0-0.7) K/uL Baso # (Auto) 0.0 (0.0-0.1) K/uL Nucleated RBC % 0.0 /100WBC Nucleated RBCs # 0 K/uL INR 0.99 APTT 25.8 (18.6-31.3) SEC Sodium 145 (136-145) mmol/L Potassium 3.5 (3.5-5.1) mmol/L Chloride 105 (98-107) mmol/L Carbon Dioxide 25.0 (21.0-32.0) mmol/L BUN 29 H (7.0-18.0) mg/dL Creatinine 1.7 H (0.6-1.0) mg/dL Est Cr Clr Drug Dosing 29.25 mL/min Estimated GFR (MDRD) 30.4 ml/min Glucose 172 H (74-106) mg/dL Calcium 9.6 (8.5-10.1) mg/dL Total Bilirubin 1.2 H (0.2-1.0) mg/dL AST 16 (15-37) IU/L ALT 18 (14-63) IU/L Alkaline Phosphatase 82 (46-116) U/L Troponin I < 0.050 (0.000-0.056) ng/mL Total Protein 7.7 (6.4-8.2) g/dL Albumin 3.2 L (3.4-5.0) g/dL Globulin 4.5 H (2.6-4.0) g/dL Albumin/Globulin Ratio 0.7 L (0.9-1.6) TSH 3rd Generation 1.92 (0.36-3.74) uIU/mL Urine Color Urine Appearance Urine pH (5.0-8.0) Ur Specific [place] (1.001-1.035) Urine Protein (NEGATIVE) mg/dL Urine Glucose (UA) (NEGATIVE) mg/dL Urine Ketones (NEGATIVE) mg/dL Urine Occult Blood (NEGATIVE) Urine Nitrite (NEGATIVE) Urine Bilirubin (NEGATIVE) Urine Urobilinogen (<2.0) EU/dL Ur Leukocyte Esterase (NEGATIVE) Urine RBC (0-2/HPF) Urine WBC (0-5/HPF) Ur Epithelial Cells (NONE-FEW) Urine Bacteria (NEGATIVE) Urine Opiates Screen (NEGATIVE) Ur Oxycodone Screen (NEGATIVE) Urine Methadone Screen (NEGATIVE) Ur Barbiturates Screen (NEGATIVE) Ur Phencyclidine Scrn (NEGATIVE) Ur Amphetamine Screen (NEGATIVE) U Methamphetamines Scrn (NEGATIVE) U Benzodiazepines Scrn (NEGATIVE) U Cocaine Metab Screen (NEGATIVE) U Marijuana (THC) Screen (NEGATIVE) Ethyl Alcohol 4 mg/dL 09/10/19 09/10/19 Range/Units 00:10 00:10 WBC (4.0-11.0) K/uL RBC (4.30-5.90) M/uL Hgb (12.0-16.0) g/dL Hct (36.0-46.0) % MCV (80.0-98.0) fL MCH (27.0-32.0) pg MCHC (31.0-37.0) g/dL RDW Std Deviation (28.0-62.0) fl RDW Coeff of [place] (11.0-15.0) % Plt Count (150-400) K/uL MPV (7.40-12.00) fL Neut % (Auto) (48.0-80.0) % Lymph % (Auto) (16.0-40.0) % [place] % (Auto) (0.0-15.0) % Eos % (Auto) (0.0-7.0) % Baso % (Auto) (0.0-1.5) % Neut # (Auto) (1.4-5.7) K/uL Lymph # (Auto) (0.6-2.4) K/uL [place] # (Auto) (0.0-0.8) K/uL Eos # (Auto) (0.0-0.7) K/uL Baso # (Auto) (0.0-0.1) K/uL Nucleated RBC % /100WBC Nucleated RBCs # K/uL INR APTT (18.6-31.3) SEC Sodium (136-145) mmol/L Potassium (3.5-5.1) mmol/L Chloride (98-107) mmol/L Carbon Dioxide (21.0-32.0) mmol/L BUN (7.0-18.0) mg/dL Creatinine (0.6-1.0) mg/dL Est Cr Clr Drug Dosing mL/min Estimated GFR (MDRD) ml/min Glucose (74-106) mg/dL Calcium (8.5-10.1) mg/dL Total Bilirubin (0.2-1.0) mg/dL AST (15-37) IU/L ALT (14-63) IU/L Alkaline Phosphatase (46-116) U/L Troponin I (0.000-0.056) ng/mL Total Protein (6.4-8.2) g/dL Albumin (3.4-5.0) g/dL Globulin (2.6-4.0) g/dL Albumin/Globulin Ratio (0.9-1.6) TSH 3rd Generation (0.36-3.74) uIU/mL Urine Color YELLOW Urine Appearance CLEAR Urine pH 5.5 (5.0-8.0) Ur Specific [place] 1.015 (1.001-1.035) Urine Protein 100 H (NEGATIVE) mg/dL Urine Glucose (UA) 500 H (NEGATIVE) mg/dL Urine Ketones NEGATIVE (NEGATIVE) mg/dL Urine Occult Blood TRACE-INTACT H (NEGATIVE) Urine Nitrite NEGATIVE (NEGATIVE) Urine Bilirubin NEGATIVE (NEGATIVE) Urine Urobilinogen 0.2 (<2.0) EU/dL Ur Leukocyte Esterase NEGATIVE (NEGATIVE) Urine RBC 0-2 (0-2/HPF) Urine WBC 0-1 (0-5/HPF) Ur Epithelial Cells RARE (NONE-FEW) Urine Bacteria RARE (NEGATIVE) Urine Opiates Screen NEGATIVE (NEGATIVE) Ur Oxycodone Screen NEGATIVE (NEGATIVE) Urine Methadone Screen NEGATIVE (NEGATIVE) Ur Barbiturates Screen NEGATIVE (NEGATIVE) Ur Phencyclidine Scrn NEGATIVE (NEGATIVE) Ur Amphetamine Screen NEGATIVE (NEGATIVE) U Methamphetamines Scrn NEGATIVE (NEGATIVE) U Benzodiazepines Scrn NEGATIVE (NEGATIVE) U Cocaine Metab Screen NEGATIVE (NEGATIVE) U Marijuana (THC) Screen NEGATIVE (NEGATIVE) Ethyl Alcohol mg/dL Meds: Medications Generic Name Dose Route Start Last Admin Trade Name Freq PRN Reason Stop Dose Admin Sodium Chloride 1,000 mls @ 125 mls/hr 09/10/19 01:45 09/10/19 02:18 Normal Saline IV 125 mls/hr ASDIRECTED COLLEEN Administration Sodium Chloride 10 ml 09/09/19 21:34 09/09/19 22:17 Saline Flush FLUSH 10 ml ASDIRECTED PRN Administration Keep Vein Open Sodium Chloride 2.5 ml 09/09/19 21:34 09/09/19 22:17 Saline Flush FLUSH 2.5 ml ASDIRECTED PRN Administration Keep Vein Open Discontinued Medications Generic Name Dose Route Start Last Admin Trade Name Bridget PRN Reason Stop Dose Admin Diphenhydramine HCl 25 mg 09/09/19 22:14 09/09/19 22:17 Benadryl IVPUSH 09/09/19 22:15 25 mg ONETIME ONE Administration Diphenhydramine HCl Confirm 09/09/19 22:13 09/09/19 22:18 Benadryl Administered 09/09/19 22:14 Not Given Dose 50 mg .ROUTE .STK-MED ONE Sterile Water Confirm 09/09/19 22:49 Sterile Water For Injection Administered 09/09/19 22:50 Dose 20 mls @ as directed .ROUTE .STK-MED ONE Iopamidol 100 ml 09/09/19 22:24 09/09/19 22:24 Isovue-370 (76%) IVPUSH 09/09/19 22:25 100 ml ONETIME ONE Administration Labetalol HCl 20 mg 09/09/19 22:43 09/09/19 22:55 Normodyne IVPUSH 09/09/19 22:44 20 mg ONETIME ONE Administration Protocol Lorazepam 1 mg 09/09/19 22:14 09/09/19 22:16 Ativan IVPUSH 09/09/19 22:15 1 mg ONETIME ONE Administration Lorazepam Confirm 09/09/19 22:13 09/09/19 22:18 Ativan Administered 09/09/19 22:14 Not Given Dose 2 mg .ROUTE .STK-MED ONE Sodium Chloride 10 ml 09/09/19 21:34 Normal Saline IV ASDIRECTED PRN IV Use Sterile Water 1.2 ml 09/09/19 22:43 09/09/19 23:53 Sterile Water For Injection INJECT 09/09/19 22:44 1.2 ml ONETIME ONE Administration Ziprasidone 20 mg 09/09/19 22:43 09/09/19 23:07 Geodon IM 09/09/19 22:44 20 mg ONETIME ONE Administration Ziprasidone Confirm 09/09/19 22:43 09/09/19 23:53 Geodon Administered 09/09/19 22:44 Not Given Dose 20 mg .ROUTE .STK-MED ONE Departure - Departure Time of Disposition: 23:45 Disposition: Admitted As Inpatient 66 Condition: Fair Clinical Impression: Altered mental status - Discharge Information Sepsis Event Note (ED) - Evaluation Sepsis Screening Result: No Definite Risk - Focused Exam Vital Signs: Vital Signs Temp Pulse Resp BP Pulse Ox 09/09/19 23:59 56 L 14 157/87 H 97 09/09/19 23:55 60 157/87 H 09/09/19 23:15 18 189/113 H 94 L 09/09/19 22:33 56 L 16 236/109 H 96 09/09/19 22:30 20 236/109 H 95 09/09/19 22:15 59 L 20 198/152 H 99 09/09/19 22:00 62 18 181/115 H 99 09/09/19 21:32 37.0 C 69 16 196/100 H 96 - My Orders Last 24 Hours: My Active Orders 09/09/19 21:34 Assess Neurological Status [RC] ASDIRECTED Bedrest [RC] ASDIRECTED Blood Glucose Check, Bedside [RC] STAT Cardiac Monitoring [RC] . DIRECTED EKG Documentation Completion [RC] STAT Height and Weight [RC] UPON Initiate Acute Stroke Protocol [RC] STAT NIH Stroke Scale [RC] ASDIRECTED Nursing Bedside Swallow Screen [RC] ASDIRECTED Oxygen Therapy [RC] ASDIRECTED Stroke Education, General [RC] Click to Edit Vital Signs [RC] Q15M Sodium Chloride 0.9% [Saline Flush] 10 ml FLUSH ASDIRECTED PRN Sodium Chloride 0.9% [Saline Flush] 2.5 ml FLUSH ASDIRECTED PRN Peripheral IV Insertion Adult [OM.PC] Stat Peripheral IV Insertion Adult [OM.PC] Stat - Assessment/Plan Last 24 Hours: My Active Orders 09/09/19 21:34 Assess Neurological Status [RC] ASDIRECTED Bedrest [RC] ASDIRECTED Blood Glucose Check, Bedside [RC] STAT Cardiac Monitoring [RC] . DIRECTED EKG Documentation Completion [RC] STAT Height and Weight [RC] UPON Initiate Acute Stroke Protocol [RC] STAT NIH Stroke Scale [RC] ASDIRECTED Nursing Bedside Swallow Screen [RC] ASDIRECTED Oxygen Therapy [RC] ASDIRECTED Stroke Education, General [RC] Click to Edit Vital Signs [RC] Q15M Sodium Chloride 0.9% [Saline Flush] 10 ml FLUSH ASDIRECTED PRN Sodium Chloride 0.9% [Saline Flush] 2.5 ml FLUSH ASDIRECTED PRN Peripheral IV Insertion Adult [OM.PC] Stat Peripheral IV Insertion Adult [OM.PC] Stat
--- NOTE | 2019-09-09 22:19 | CR ---
Chest: Portable view of the chest was obtained. Comparison: Prior chest x-ray of 11/16/16. Heart is mildly enlarged. Slight scar is noted above the left cardiac apex within the left mid to lower lung. Lungs otherwise are clear. Slight degenerative change is scattered within the spine. Impression: 1. Findings as noted above. 2. Nothing acute is otherwise seen. Diagnostic code #2 This report was dictated in MDT
[2019-09-09] MEDS ORDERED: Iopamidol 755 Mg/ML 100 ML Bottle IVPUSH ONE (22:24)
--- NOTE | 2019-09-09 22:31 | CT ---
INDICATION: Stroke protocol TECHNIQUE: CT head without contrast. COMPARISON: None available FINDINGS: There is artifact near the skullbase. The ventricles and sulci are within normal limits for the patient`s age. There is no mass effect or midline shift. There is a chronic appearing lacunar infarct in the right basal ganglia extending to the anterior periventricular right frontal trujillo radiata. Regional decreased attenuation on images 56-61 could be related to gliosis, although a component of evolving ischemia is difficult to exclude. There is a chronic right trujillo radiata lacunar infarct on image 59. There is no definite loss of melgar-white differentiation. There is no evidence of gross acute intracranial hemorrhage. No acute calvarial fracture is seen. There are mucosal retention cysts or polyps in the maxillary and sphenoid sinuses. The mastoid air cells are clear. The visualized orbits are within normal limits. IMPRESSION: Chronic right ganglionic and trujillo radiata lacunar infarcts. A low-attenuation area in the right frontal periventricular region could be related to gliosis, however a component of evolving ischemia is not excluded. Correlate clinically, and if indicated, with MRI. Dictated by Blake Phipps MD @ 09/09/2019 10:28:36 PM Please note that all CT scans at this facility use dose modulation, iterative reconstruction, and/or weight-based dosing when appropriate to reduce radiation dose to as low as reasonably achievable. Dictated by: Blake Phipps MD @ 09/09/2019 22:28:44 (Electronically Signed)
--- NOTE | 2019-09-09 22:37 | CT ---
CT ANGIOGRAM HEAD AND NECK DATE: 09/10/2019 CLINICAL HISTORY: Patient with focal neurological deficits. TECHNIQUE: Standard helical CT image acquisition through the head and neck was performed after intravenous contrast bolus enhancement. Multiplanar reconstructed images were performed and interpreted. COMPARISON: CT same day. FINDINGS: Images are degraded by patient motion. The origins of the great vessels from the aortic arch are patent. The origin of the right vertebral artery is patent. The origin of the left vertebral artery is patent. The common carotid arteries are grossly patent The origins and cervical segments of the internal carotid arteries are grossly patent. The mid and distal cervical segments of the vertebral arteries are grossly patent. The proximal intracranial vasculature is grossly patent. The visualized lung apices are unremarkable The thyroid gland is unremarkable. There are degenerative changes in the cervical spine. IMPRESSION: Images are degraded by patient motion. Grossly patent cervical and proximal intracranial vasculature. Please note that all CT scans at this facility use dose modulation, iterative reconstruction, and/or weight-based dosing when appropriate to reduce radiation dose to as low as reasonably achievable. Dictated by: Froilan Ellis MD @ 09/10/2019 15:51:04 (Electronically Signed)
[2019-09-09] MEDS ORDERED: Ziprasidone Mesylate 20 MG Vial ONE (22:43)
[2019-09-09] MEDS ORDERED: Water For Injection, Sterile 20 ML SDV INJECT ONE (22:43)
[2019-09-09] MEDS ORDERED: Ziprasidone Mesylate 20 MG Vial IM ONE (22:43)
[2019-09-09] MEDS ORDERED: Labetalol 100 MG/20 ML MDV IVPUSH ONE (22:43)
[2019-09-09] MEDS ORDERED: Water For Injection, Sterile 20 ML ONE (22:49)
--- NOTE | 2019-09-10 02:08 | PCM.HP.2 ---
H&P History of Present Illness - General Date of Service: 09/10/19 Admit Problem/Dx: Admission Diagnosis/Problem Admission Diagnosis/Problem Altered mental status - History of Present Illness Initial Comments - Free Text/Narative: 63 yo female who was brought to the ED after wandering in her neighbors yard. In the ED she was only answering some questions and not following commands. 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 She was given Geodon and Ativan and is sedated on my interview. Daughter arrived who is power of assistant prosecuting attorney stated she was recently diagnosed by Dr. Nam with early onset Alzheimer's disease. She had been having problems with memory last fall and the last month has rapidly deteriorated. Patient is having incontinence and confusion is worse at night. Her confusion is also worse when she visits at her daughter's house. Patient is currently living alone and daughter is trying to get her placed at [place]. Patient has history of hypertension but has not been taking any of her medications for several months. - Related Data Allergies/Adverse Reactions: Allergies Allergy/AdvReac Type Severity Reaction Status Date / Time No Known Allergies Allergy Verified 07/01/17 14:30 Home Medications: Home Meds . [Unable to Verify Home Med List] 11/16/16 [History] Past Medical History Cardiovascular History: Reports: Angina, Hypertension Genitourinary History: Reports: None Neurological History: Reports: Other (See Below) Other Neuro History: encephalitis Endocrine/Metabolic History: Reports: Diabetes, Type II - Infectious Disease History Infectious Disease History: Reports: Chicken Pox, Shingles - Past Surgical History Cardiovascular Surgical History: Reports: None Female Surgical History: Reports: Section Neurological Surgical History: Reports: None Social & Family History - Family History Family Medical History: Unobtainable - Tobacco Use Smoking Status *Q: Unknown Ever Smoked H&P Review of Systems - Review of Systems: Review Of Systems: Comprehensive ROS is negative, except as noted in HPI. Exam - Exam Exam: See Below - Vital Signs Vital Signs: Last Vital Signs Temp 37.0 C 09/09/19 21:32 Pulse 56 L 09/09/19 23:59 Resp 14 09/09/19 23:59 BP 157/87 H 09/09/19 23:59 Pulse Ox 97 09/09/19 23:59 Weight: 81.647 kg - Exam General: Sedated HEENT: Mucosa Moist & [place] Lungs: Clear to Auscultation, Normal Respiratory Effort Cardiovascular: Regular Rate, Regular Rhythm GI/Abdominal Exam: Normal Bowel Sounds, Soft, Non-Tender Extremities: Non-Tender, No Pedal Edema Skin: Warm, Dry, Intact Neurological: Cranial Nerves Intact. No: Focal Deficit - Patient Data Lab Results Last 24 hrs: Laboratory Results - last 24 hr 09/09/19 09/09/19 09/09/19 Range/Units 21:34 21:34 21:34 WBC 13.81 H (4.0-11.0) K/uL RBC 5.06 (4.30-5.90) M/uL Hgb 15.2 (12.0-16.0) g/dL Hct 44.7 (36.0-46.0) % MCV 88.3 (80.0-98.0) fL MCH 30.0 (27.0-32.0) pg MCHC 34.0 (31.0-37.0) g/dL RDW Std Deviation 44.1 (28.0-62.0) fl RDW Coeff of [place] 14 (11.0-15.0) % Plt Count 237 (150-400) K/uL MPV 11.70 (7.40-12.00) fL Neut % (Auto) 82.6 H (48.0-80.0) % Lymph % (Auto) 8.3 L (16.0-40.0) % [place] % (Auto) 8.9 (0.0-15.0) % Eos % (Auto) 0.1 (0.0-7.0) % Baso % (Auto) 0.1 (0.0-1.5) % Neut # (Auto) 11.4 H (1.4-5.7) K/uL Lymph # (Auto) 1.1 (0.6-2.4) K/uL [place] # (Auto) 1.2 H (0.0-0.8) K/uL Eos # (Auto) 0.0 (0.0-0.7) K/uL Baso # (Auto) 0.0 (0.0-0.1) K/uL Nucleated RBC % 0.0 /100WBC Nucleated RBCs # 0 K/uL INR 0.99 APTT 25.8 (18.6-31.3) SEC Sodium 145 (136-145) mmol/L Potassium 3.5 (3.5-5.1) mmol/L Chloride 105 (98-107) mmol/L Carbon Dioxide 25.0 (21.0-32.0) mmol/L BUN 29 H (7.0-18.0) mg/dL Creatinine 1.7 H (0.6-1.0) mg/dL Est Cr Clr Drug Dosing 29.25 mL/min Estimated GFR (MDRD) 30.4 ml/min Glucose 172 H (74-106) mg/dL Calcium 9.6 (8.5-10.1) mg/dL Total Bilirubin 1.2 H (0.2-1.0) mg/dL AST 16 (15-37) IU/L ALT 18 (14-63) IU/L Alkaline Phosphatase 82 (46-116) U/L Troponin I < 0.050 (0.000-0.056) ng/mL Total Protein 7.7 (6.4-8.2) g/dL Albumin 3.2 L (3.4-5.0) g/dL Globulin 4.5 H (2.6-4.0) g/dL Albumin/Globulin Ratio 0.7 L (0.9-1.6) TSH 3rd Generation 1.92 (0.36-3.74) uIU/mL Urine Color Urine Appearance Urine pH (5.0-8.0) Ur Specific [place] (1.001-1.035) Urine Protein (NEGATIVE) mg/dL Urine Glucose (UA) (NEGATIVE) mg/dL Urine Ketones (NEGATIVE) mg/dL Urine Occult Blood (NEGATIVE) Urine Nitrite (NEGATIVE) Urine Bilirubin (NEGATIVE) Urine Urobilinogen (<2.0) EU/dL Ur Leukocyte Esterase (NEGATIVE) Urine RBC (0-2/HPF) Urine WBC (0-5/HPF) Ur Epithelial Cells (NONE-FEW) Urine Bacteria (NEGATIVE) Urine Opiates Screen (NEGATIVE) Ur Oxycodone Screen (NEGATIVE) Urine Methadone Screen (NEGATIVE) Ur Barbiturates Screen (NEGATIVE) Ur Phencyclidine Scrn (NEGATIVE) Ur Amphetamine Screen (NEGATIVE) U Methamphetamines Scrn (NEGATIVE) U Benzodiazepines Scrn (NEGATIVE) U Cocaine Metab Screen (NEGATIVE) U Marijuana (THC) Screen (NEGATIVE) Ethyl Alcohol 4 mg/dL 09/10/19 09/10/19 Range/Units 00:10 00:10 WBC (4.0-11.0) K/uL RBC (4.30-5.90) M/uL Hgb (12.0-16.0) g/dL Hct (36.0-46.0) % MCV (80.0-98.0) fL MCH (27.0-32.0) pg MCHC (31.0-37.0) g/dL RDW Std Deviation (28.0-62.0) fl RDW Coeff of [place] (11.0-15.0) % Plt Count (150-400) K/uL MPV (7.40-12.00) fL Neut % (Auto) (48.0-80.0) % Lymph % (Auto) (16.0-40.0) % [place] % (Auto) (0.0-15.0) % Eos % (Auto) (0.0-7.0) % Baso % (Auto) (0.0-1.5) % Neut # (Auto) (1.4-5.7) K/uL Lymph # (Auto) (0.6-2.4) K/uL [place] # (Auto) (0.0-0.8) K/uL Eos # (Auto) (0.0-0.7) K/uL Baso # (Auto) (0.0-0.1) K/uL Nucleated RBC % /100WBC Nucleated RBCs # K/uL INR APTT (18.6-31.3) SEC Sodium (136-145) mmol/L Potassium (3.5-5.1) mmol/L Chloride (98-107) mmol/L Carbon Dioxide (21.0-32.0) mmol/L BUN (7.0-18.0) mg/dL Creatinine (0.6-1.0) mg/dL Est Cr Clr Drug Dosing mL/min Estimated GFR (MDRD) ml/min Glucose (74-106) mg/dL Calcium (8.5-10.1) mg/dL Total Bilirubin (0.2-1.0) mg/dL AST (15-37) IU/L ALT (14-63) IU/L Alkaline Phosphatase (46-116) U/L Troponin I (0.000-0.056) ng/mL Total Protein (6.4-8.2) g/dL Albumin (3.4-5.0) g/dL Globulin (2.6-4.0) g/dL Albumin/Globulin Ratio (0.9-1.6) TSH 3rd Generation (0.36-3.74) uIU/mL Urine Color YELLOW Urine Appearance CLEAR Urine pH 5.5 (5.0-8.0) Ur Specific [place] 1.015 (1.001-1.035) Urine Protein 100 H (NEGATIVE) mg/dL Urine Glucose (UA) 500 H (NEGATIVE) mg/dL Urine Ketones NEGATIVE (NEGATIVE) mg/dL Urine Occult Blood TRACE-INTACT H (NEGATIVE) Urine Nitrite NEGATIVE (NEGATIVE) Urine Bilirubin NEGATIVE (NEGATIVE) Urine Urobilinogen 0.2 (<2.0) EU/dL Ur Leukocyte Esterase NEGATIVE (NEGATIVE) Urine RBC 0-2 (0-2/HPF) Urine WBC 0-1 (0-5/HPF) Ur Epithelial Cells RARE (NONE-FEW) Urine Bacteria RARE (NEGATIVE) Urine Opiates Screen NEGATIVE (NEGATIVE) Ur Oxycodone Screen NEGATIVE (NEGATIVE) Urine Methadone Screen NEGATIVE (NEGATIVE) Ur Barbiturates Screen NEGATIVE (NEGATIVE) Ur Phencyclidine Scrn NEGATIVE (NEGATIVE) Ur Amphetamine Screen NEGATIVE (NEGATIVE) U Methamphetamines Scrn NEGATIVE (NEGATIVE) U Benzodiazepines Scrn NEGATIVE (NEGATIVE) U Cocaine Metab Screen NEGATIVE (NEGATIVE) U Marijuana (THC) Screen NEGATIVE (NEGATIVE) Ethyl Alcohol mg/dL Result Diagrams: 09/10/19 05:51 09/10/19 05:51 Sepsis Event Note - Evaluation Sepsis Screening Result: No Definite Risk - Focused Exam Vital Signs: Vital Signs Temp Pulse Resp BP Pulse Ox 09/09/19 23:59 56 L 14 157/87 H 97 09/09/19 23:55 60 157/87 H 09/09/19 23:15 18 189/113 H 94 L 09/09/19 22:33 56 L 16 236/109 H 96 09/09/19 22:30 20 236/109 H 95 09/09/19 22:15 59 L 20 198/152 H 99 09/09/19 22:00 62 18 181/115 H 99 09/09/19 21:32 37.0 C 69 16 196/100 H 96 Date Exam was Performed: 09/10/19 Time Exam was Performed: 11:05 Problem List Initiated/Reviewed/Updated: Yes Orders Last 24hrs: Active Orders 24 hr Category Date Time Status Admission Status [Patient Status] [ADT] Stat ADT 09/10/19 00:49 Active Assess Neurological Status [RC] ASDIRECTED Care 09/09/19 21:34 Active Bedrest [RC] ASDIRECTED Care 09/09/19 21:34 Active Blood Glucose Check, Bedside [RC] STAT Care 09/09/19 21:34 Active Cardiac Monitoring [RC] . DIRECTED Care 09/09/19 21:34 Active EKG Documentation Completion [RC] STAT Care 09/09/19 21:34 Active Height and Weight [RC] UPON Care 09/09/19 21:34 Active Initiate Acute Stroke Protocol [RC] STAT Care 09/09/19 21:34 Active NIH Stroke Scale [RC] ASDIRECTED Care 09/09/19 21:34 Active Nursing Bedside Swallow Screen [RC] ASDIRECTED Care 09/09/19 21:34 Active Oxygen Therapy [RC] ASDIRECTED Care 09/09/19 21:34 Active Oxygen Therapy [RC] PRN Care 09/10/19 02:01 Ordered Stroke Education, General [RC] Click to Edit Care 09/09/19 21:34 Active VTE/DVT Education [RC] PER UNIT ROUTINE Care 09/10/19 02:01 Ordered Vital Signs [RC] Q15M Care 09/09/19 21:34 Active Vital Signs [RC] Q4H Care 09/10/19 02:01 Ordered Brain w wo Cont [MR] Routine Exams 09/10/19 01:34 Stop Req BASIC METABOLIC PANEL,BMP [CHEM] AM Lab 09/10/19 05:11 Ordered CBC WITH AUTO DIFF [HEME] AM Lab 09/10/19 05:11 Ordered MAGNESIUM [CHEM] AM Lab 09/10/19 05:11 Ordered PHOSPHORUS [CHEM] AM Lab 09/10/19 05:11 Ordered Sodium Chloride 0.9% @ 125 MLS/HR (1,000ml) Med 09/10/19 01:45 Ordered Sodium Chloride 0.9% [Normal Saline] 1,000 ml IV ASDIRECTED Sodium Chloride 0.9% [Saline Flush] Med 09/09/19 21:34 Active 10 ml FLUSH ASDIRECTED PRN Sodium Chloride 0.9% [Saline Flush] Med 09/09/19 21:34 Active 2.5 ml FLUSH ASDIRECTED PRN Peripheral IV Insertion Adult [OM.PC] Stat Oth 09/09/19 21:34 Ordered Peripheral IV Insertion Adult [OM.PC] Stat Ot 09/09/19 21:34 Ordered Resuscitation Status Routine Resus Stat 09/10/19 02:01 Ordered Medication Orders Sodium Chloride (Normal Saline) 1,000 mls @ 125 mls/hr IV ASDIRECTED COLLEEN Sodium Chloride (Saline Flush) 10 ml FLUSH ASDIRECTED PRN PRN Reason: Keep Vein Open Last Admin: 09/09/19 22:17 Dose: 10 ml Sodium Chloride (Saline Flush) 2.5 ml FLUSH ASDIRECTED PRN PRN Reason: Keep Vein Open Last Admin: 09/09/19 22:17 Dose: 2.5 ml Assessment/Plan Comment:: 63 yo female admitted with an acute decline in her dementia. We will continue to monitor.
[2019-09-10] MEDS: Sodium Chloride 0.9% 1,000 ML IV SCH ×3 (02:18→19:26)
[2019-09-10] MEDS: amLODIPine 5 MG Tab PO ONE ×2 (06:08→10:40)
[2019-09-10 06:41] LABS: POTASSIUM,K 3.4 mmol/L (3.5-5.1)
[2019-09-10] MEDS ORDERED: amLODIPine 5 MG Tab PO ONE ×2 (10:45→16:18)
--- NOTE | 2019-09-10 11:04 | PCM.PN ---
- General Info Date of Service: 09/10/19 - Review of Systems Systems Review Comment:: patient denies any pain, has no concerns, but is very lethargic and only shakes head yes or no. - Patient Data Vitals - Most Recent: Last Vital Signs Temp 36.8 C 09/10/19 08:00 Pulse 52 L 09/10/19 08:00 Resp 18 09/10/19 08:00 BP 190/72 H 09/10/19 10:47 Pulse Ox 98 09/10/19 08:00 Weight - Most Recent: 81.647 kg I&O - Last 24 Hours: Intake & Output 09/09/19 09/10/19 09/10/19 22:59 06:59 14:59 Intake Total 224 Output Total 150 Balance 74 Lab Results Last 24 Hours: Laboratory Results - last 24 hr 09/09/19 09/09/19 09/09/19 Range/Units 21:34 21:34 21:34 WBC 13.81 H (4.0-11.0) K/uL RBC 5.06 (4.30-5.90) M/uL Hgb 15.2 (12.0-16.0) g/dL Hct 44.7 (36.0-46.0) % MCV 88.3 (80.0-98.0) fL MCH 30.0 (27.0-32.0) pg MCHC 34.0 (31.0-37.0) g/dL RDW Std Deviation 44.1 (28.0-62.0) fl RDW Coeff of [place] 14 (11.0-15.0) % Plt Count 237 (150-400) K/uL MPV 11.70 (7.40-12.00) fL Neut % (Auto) 82.6 H (48.0-80.0) % Lymph % (Auto) 8.3 L (16.0-40.0) % [place] % (Auto) 8.9 (0.0-15.0) % Eos % (Auto) 0.1 (0.0-7.0) % Baso % (Auto) 0.1 (0.0-1.5) % Neut # (Auto) 11.4 H (1.4-5.7) K/uL Lymph # (Auto) 1.1 (0.6-2.4) K/uL [place] # (Auto) 1.2 H (0.0-0.8) K/uL Eos # (Auto) 0.0 (0.0-0.7) K/uL Baso # (Auto) 0.0 (0.0-0.1) K/uL Nucleated RBC % 0.0 /100WBC Nucleated RBCs # 0 K/uL INR 0.99 APTT 25.8 (18.6-31.3) SEC Sodium 145 (136-145) mmol/L Potassium 3.5 (3.5-5.1) mmol/L Chloride 105 (98-107) mmol/L Carbon Dioxide 25.0 (21.0-32.0) mmol/L BUN 29 H (7.0-18.0) mg/dL Creatinine 1.7 H (0.6-1.0) mg/dL Est Cr Clr Drug Dosing 29.25 mL/min Estimated GFR (MDRD) 30.4 ml/min Glucose 172 H (74-106) mg/dL Calcium 9.6 (8.5-10.1) mg/dL Phosphorus (2.6-4.7) mg/dL Magnesium (1.8-2.4) mg/dL Total Bilirubin 1.2 H (0.2-1.0) mg/dL AST 16 (15-37) IU/L ALT 18 (14-63) IU/L Alkaline Phosphatase 82 (46-116) U/L Troponin I < 0.050 (0.000-0.056) ng/mL Total Protein 7.7 (6.4-8.2) g/dL Albumin 3.2 L (3.4-5.0) g/dL Globulin 4.5 H (2.6-4.0) g/dL Albumin/Globulin Ratio 0.7 L (0.9-1.6) TSH 3rd Generation 1.92 (0.36-3.74) uIU/mL Urine Color Urine Appearance Urine pH (5.0-8.0) Ur Specific [place] (1.001-1.035) Urine Protein (NEGATIVE) mg/dL Urine Glucose (UA) (NEGATIVE) mg/dL Urine Ketones (NEGATIVE) mg/dL Urine Occult Blood (NEGATIVE) Urine Nitrite (NEGATIVE) Urine Bilirubin (NEGATIVE) Urine Urobilinogen (<2.0) EU/dL Ur Leukocyte Esterase (NEGATIVE) Urine RBC (0-2/HPF) Urine WBC (0-5/HPF) Ur Epithelial Cells (NONE-FEW) Urine Bacteria (NEGATIVE) Urine Opiates Screen (NEGATIVE) Ur Oxycodone Screen (NEGATIVE) Urine Methadone Screen (NEGATIVE) Ur Barbiturates Screen (NEGATIVE) Ur Phencyclidine Scrn (NEGATIVE) Ur Amphetamine Screen (NEGATIVE) U Methamphetamines Scrn (NEGATIVE) U Benzodiazepines Scrn (NEGATIVE) U Cocaine Metab Screen (NEGATIVE) U Marijuana (THC) Screen (NEGATIVE) Ethyl Alcohol 4 mg/dL 09/10/19 09/10/19 09/10/19 Range/Units 00:10 00:10 05:51 WBC 13.07 H (4.0-11.0) K/uL RBC 5.04 (4.30-5.90) M/uL Hgb 15.0 (12.0-16.0) g/dL Hct 45.3 (36.0-46.0) % MCV 89.9 (80.0-98.0) fL MCH 29.8 (27.0-32.0) pg MCHC 33.1 (31.0-37.0) g/dL RDW Std Deviation 45.4 (28.0-62.0) fl RDW Coeff of [place] 14 (11.0-15.0) % Plt Count 225 (150-400) K/uL MPV 11.30 (7.40-12.00) fL Neut % (Auto) 74.1 (48.0-80.0) % Lymph % (Auto) 13.8 L (16.0-40.0) % [place] % (Auto) 11.6 (0.0-15.0) % Eos % (Auto) 0.3 (0.0-7.0) % Baso % (Auto) 0.2 (0.0-1.5) % Neut # (Auto) 9.7 H (1.4-5.7) K/uL Lymph # (Auto) 1.8 (0.6-2.4) K/uL [place] # (Auto) 1.5 H (0.0-0.8) K/uL Eos # (Auto) 0.0 (0.0-0.7) K/uL Baso # (Auto) 0.0 (0.0-0.1) K/uL Nucleated RBC % 0.0 /100WBC Nucleated RBCs # 0 K/uL INR APTT (18.6-31.3) SEC Sodium (136-145) mmol/L Potassium (3.5-5.1) mmol/L Chloride (98-107) mmol/L Carbon Dioxide (21.0-32.0) mmol/L BUN (7.0-18.0) mg/dL Creatinine (0.6-1.0) mg/dL Est Cr Clr Drug Dosing mL/min Estimated GFR (MDRD) ml/min Glucose (74-106) mg/dL Calcium (8.5-10.1) mg/dL Phosphorus (2.6-4.7) mg/dL Magnesium (1.8-2.4) mg/dL Total Bilirubin (0.2-1.0) mg/dL AST (15-37) IU/L ALT (14-63) IU/L Alkaline Phosphatase (46-116) U/L Troponin I (0.000-0.056) ng/mL Total Protein (6.4-8.2) g/dL Albumin (3.4-5.0) g/dL Globulin (2.6-4.0) g/dL Albumin/Globulin Ratio (0.9-1.6) TSH 3rd Generation (0.36-3.74) uIU/mL Urine Color YELLOW Urine Appearance CLEAR Urine pH 5.5 (5.0-8.0) Ur Specific [place] 1.015 (1.001-1.035) Urine Protein 100 H (NEGATIVE) mg/dL Urine Glucose (UA) 500 H (NEGATIVE) mg/dL Urine Ketones NEGATIVE (NEGATIVE) mg/dL Urine Occult Blood TRACE-INTACT H (NEGATIVE) Urine Nitrite NEGATIVE (NEGATIVE) Urine Bilirubin NEGATIVE (NEGATIVE) Urine Urobilinogen 0.2 (<2.0) EU/dL Ur Leukocyte Esterase NEGATIVE (NEGATIVE) Urine RBC 0-2 (0-2/HPF) Urine WBC 0-1 (0-5/HPF) Ur Epithelial Cells RARE (NONE-FEW) Urine Bacteria RARE (NEGATIVE) Urine Opiates Screen NEGATIVE (NEGATIVE) Ur Oxycodone Screen NEGATIVE (NEGATIVE) Urine Methadone Screen NEGATIVE (NEGATIVE) Ur Barbiturates Screen NEGATIVE (NEGATIVE) Ur Phencyclidine Scrn NEGATIVE (NEGATIVE) Ur Amphetamine Screen NEGATIVE (NEGATIVE) U Methamphetamines Scrn NEGATIVE (NEGATIVE) U Benzodiazepines Scrn NEGATIVE (NEGATIVE) U Cocaine Metab Screen NEGATIVE (NEGATIVE) U Marijuana (THC) Screen NEGATIVE (NEGATIVE) Ethyl Alcohol mg/dL 09/10/19 Range/Units 05:51 WBC (4.0-11.0) K/uL RBC (4.30-5.90) M/uL Hgb (12.0-16.0) g/dL Hct (36.0-46.0) % MCV (80.0-98.0) fL MCH (27.0-32.0) pg MCHC (31.0-37.0) g/dL RDW Std Deviation (28.0-62.0) fl RDW Coeff of [place] (11.0-15.0) % Plt Count (150-400) K/uL MPV (7.40-12.00) fL Neut % (Auto) (48.0-80.0) % Lymph % (Auto) (16.0-40.0) % [place] % (Auto) (0.0-15.0) % Eos % (Auto) (0.0-7.0) % Baso % (Auto) (0.0-1.5) % Neut # (Auto) (1.4-5.7) K/uL Lymph # (Auto) (0.6-2.4) K/uL [place] # (Auto) (0.0-0.8) K/uL Eos # (Auto) (0.0-0.7) K/uL Baso # (Auto) (0.0-0.1) K/uL Nucleated RBC % /100WBC Nucleated RBCs # K/uL INR APTT (18.6-31.3) SEC Sodium 145 (136-145) mmol/L Potassium 3.4 L (3.5-5.1) mmol/L Chloride 106 (98-107) mmol/L Carbon Dioxide 28.0 (21.0-32.0) mmol/L BUN 31 H (7.0-18.0) mg/dL Creatinine 1.8 H (0.6-1.0) mg/dL Est Cr Clr Drug Dosing 25.30 mL/min Estimated GFR (MDRD) 28.4 ml/min Glucose 131 H (74-106) mg/dL Calcium 9.3 (8.5-10.1) mg/dL Phosphorus 5.6 H (2.6-4.7) mg/dL Magnesium 2.2 (1.8-2.4) mg/dL Total Bilirubin (0.2-1.0) mg/dL AST (15-37) IU/L ALT (14-63) IU/L Alkaline Phosphatase (46-116) U/L Troponin I (0.000-0.056) ng/mL Total Protein (6.4-8.2) g/dL Albumin (3.4-5.0) g/dL Globulin (2.6-4.0) g/dL Albumin/Globulin Ratio (0.9-1.6) TSH 3rd Generation (0.36-3.74) uIU/mL Urine Color Urine Appearance Urine pH (5.0-8.0) Ur Specific [place] (1.001-1.035) Urine Protein (NEGATIVE) mg/dL Urine Glucose (UA) (NEGATIVE) mg/dL Urine Ketones (NEGATIVE) mg/dL Urine Occult Blood (NEGATIVE) Urine Nitrite (NEGATIVE) Urine Bilirubin (NEGATIVE) Urine Urobilinogen (<2.0) EU/dL Ur Leukocyte Esterase (NEGATIVE) Urine RBC (0-2/HPF) Urine WBC (0-5/HPF) Ur Epithelial Cells (NONE-FEW) Urine Bacteria (NEGATIVE) Urine Opiates Screen (NEGATIVE) Ur Oxycodone Screen (NEGATIVE) Urine Methadone Screen (NEGATIVE) Ur Barbiturates Screen (NEGATIVE) Ur Phencyclidine Scrn (NEGATIVE) Ur Amphetamine Screen (NEGATIVE) U Methamphetamines Scrn (NEGATIVE) U Benzodiazepines Scrn (NEGATIVE) U Cocaine Metab Screen (NEGATIVE) U Marijuana (THC) Screen (NEGATIVE) Ethyl Alcohol mg/dL Med Orders - Current: Current Medications Amlodipine Besylate (Norvasc) 5 mg PO DAILY COLLEEN Sodium Chloride (Normal Saline) 1,000 mls @ 125 mls/hr IV ASDIRECTED COLLEEN Last Admin: 09/10/19 10:29 Dose: 125 mls/hr Sodium Chloride (Saline Flush) 10 ml FLUSH ASDIRECTED PRN PRN Reason: Keep Vein Open Last Admin: 09/09/19 22:17 Dose: 10 ml Sodium Chloride (Saline Flush) 2.5 ml FLUSH ASDIRECTED PRN PRN Reason: Keep Vein Open Last Admin: 09/09/19 22:17 Dose: 2.5 ml Discontinued Medications Amlodipine Besylate (Norvasc) 5 mg PO ONETIME ONE Stop: 09/10/19 05:39 Last Admin: 09/10/19 10:40 Dose: Not Given Amlodipine Besylate (Norvasc) 5 mg PO ONETIME ONE Stop: 09/10/19 10:46 Last Admin: 09/10/19 10:47 Dose: 5 mg Diphenhydramine HCl (Benadryl) 25 mg IVPUSH ONETIME ONE Stop: 09/09/19 22:15 Last Admin: 09/09/19 22:17 Dose: 25 mg Diphenhydramine HCl (Benadryl) Confirm Administered Dose 50 mg .ROUTE .STK-MED ONE Stop: 09/09/19 22:14 Last Admin: 09/09/19 22:18 Dose: Not Given Sterile Water (Sterile Water For Injection) Confirm Administered Dose 20 mls @ as directed .ROUTE .STK-MED ONE Stop: 09/09/19 22:50 Last Admin: 09/10/19 08:47 Dose: Not Given Iopamidol (Isovue-370 (76%)) 100 ml IVPUSH ONETIME ONE Stop: 09/09/19 22:25 Last Admin: 09/09/19 22:24 Dose: 100 ml Labetalol HCl (Normodyne) 20 mg IVPUSH ONETIME ONE; Protocol Stop: 09/09/19 22:44 Last Admin: 09/09/19 22:55 Dose: 20 mg Lorazepam (Ativan) 1 mg IVPUSH ONETIME ONE Stop: 09/09/19 22:15 Last Admin: 09/09/19 22:16 Dose: 1 mg Lorazepam (Ativan) Confirm Administered Dose 2 mg .ROUTE .STK-MED ONE Stop: 09/09/19 22:14 Last Admin: 09/09/19 22:18 Dose: Not Given Sodium Chloride (Normal Saline) 10 ml IV ASDIRECTED PRN PRN Reason: IV Use Sterile Water (Sterile Water For Injection) 1.2 ml INJECT ONETIME ONE Stop: 09/09/19 22:44 Last Admin: 09/09/19 23:53 Dose: 1.2 ml Ziprasidone (Geodon) 20 mg IM ONETIME ONE Stop: 09/09/19 22:44 Last Admin: 09/09/19 23:07 Dose: 20 mg Ziprasidone (Geodon) Confirm Administered Dose 20 mg .ROUTE .STK-MED ONE Stop: 09/09/19 22:44 Last Admin: 09/09/19 23:53 Dose: Not Given - Exam General: Lethargic Neck: Supple Lungs: Clear to Auscultation, Normal Respiratory Effort Cardiovascular: Regular Rate, Regular Rhythm GI/Abdominal Exam: Normal Bowel Sounds, Soft, Non-Tender, No Distention Extremities: Non-Tender, No Pedal Edema Skin: Warm, Dry, Intact Neurological: No New Focal Deficit Sepsis Event Note - Evaluation Sepsis Screening Result: No Definite Risk - Focused Exam Vital Signs: Vital Signs Temp Pulse Resp BP BP Pulse Ox Pulse Ox 09/10/19 10:47 190/72 H 09/10/19 08:00 36.8 C 52 L 18 169/76 H 98 09/10/19 04:00 36.5 C 52 L 14 202/74 H 100 09/10/19 02:01 59 L 16 164/87 H 89 L 99 09/10/19 01:21 36.6 C 57 L 16 164/87 H 96 09/09/19 23:59 56 L 14 157/87 H 97 09/09/19 23:55 60 157/87 H 09/09/19 23:15 18 189/113 H 94 L Date Exam was Performed: 09/10/19 Time Exam was Performed: 10:50 - Problem List Review Problem List Initiated/Reviewed/Updated: Yes - My Orders Last 24 Hours: My Active Orders 09/10/19 01:45 Sodium Chloride 0.9% [Normal Saline] 1,000 ml IV ASDIRECTED 09/10/19 02:01 Oxygen Therapy [RC] PRN VTE/DVT Education [RC] PER UNIT ROUTINE Vital Signs [RC] Q4H Resuscitation Status Routine 09/11/19 09:00 amLODIPine [Norvasc] 5 mg PO DAILY - Plan Plan:: 63 yo female admitted with an acute decline in her dementia. Patient still lethargic from benzodiazepines given earlier this morning in the ED. Elevated creatinine: likely acute on chronic kidney disease will continue hydrating with IV fluids Alzheimer's: patient will likely need SNF placement.
[2019-09-10] MEDS ORDERED: Labetalol 100 MG/20 ML MDV IVPUSH ONE (12:05)
[2019-09-10] MEDS: Heparin Sodium 5,000 Units/ML Vial SUBCUT SCH (16:01)
[2019-09-10 16:48] LABS: HEMOGLOBIN A1C 6.4 % (4.5-6.2)
[2019-09-10] MEDS ORDERED: cloNIDine 0.1 MG Tab PO ONE (20:14)
[2019-09-11] MEDS: Heparin Sodium 5,000 Units/ML Vial SUBCUT SCH (03:17)
[2019-09-11] MEDS: Sodium Chloride 0.9% 1,000 ML IV SCH (03:19)
[2019-09-11] MEDS ORDERED: cloNIDine 0.1 MG Tab PO ONE (04:42)
[2019-09-11] MEDS ORDERED: amLODIPine 5 MG Tab PO SCH (09:00)
[2019-09-11] MEDS ORDERED: Insulin Aspart 100 Units/ML 3 ML Pen SUBCUT SCH (11:30)
--- NOTE | 2019-09-11 11:52 | PCM.DCSUM1 ---
Discharge Summary - Discharge Data Discharge Date: 09/11/19 Discharge Disposition: Home, Self-Care 01 Condition: Good - Referral to Home Health Primary Care Physician: PCP None - Patient Summary/Data Hospital Course: 63 yo female who was brought to the ED after wandering in her neighbors yard. In the ED she was only answering some questions and not following commands. 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 She was given Geodon and Ativan and is sedated on my interview. Daughter arrived who is power of civil rights attorney stated she was recently diagnosed by Dr. Nam with early onset Alzheimer's disease. She had been having problems with memory last fall and the last month has rapidly deteriorated. Patient is having incontinence and confusion is worse at night. Her confusion is also worse when she visits at her daughter's house. Patient is currently living alone and daughter is trying to get her placed at [place]. Patient has history of hypertension but has not been taking any of her medications for several months. She was given Geodon in the ED for agitation and then admitted to the medical floor. She was lethargic the following day but when she awoke she was pleasant and denied any concerns. She was started on amlodipine for hypertension. Daughter is trying to find placement at a correction but in the meantime she is wanting to take the patient home with her. Patient was discharged into the care of her daughter. - Discharge Plan Prescriptions/Med Rec: amLODIPine [Norvasc] 10 mg PO DAILY #30 tab Home Medications: Home Meds amLODIPine [Norvasc] 10 mg PO DAILY #30 tab 09/11/19 [Rx] - Discharge Summary/Plan Comment DC Time >30 min.: No - Patient Data Vitals - Most Recent: Last Vital Signs Temp 35.8 C L 09/11/19 07:51 Pulse 50 L 09/11/19 07:51 Resp 19 09/11/19 07:51 BP 179/84 H 09/11/19 08:44 Pulse Ox 95 09/11/19 07:51 Weight - Most Recent: 81.647 kg I&O - Last 24 hours: Intake & Output 09/10/19 09/11/19 09/11/19 22:59 06:59 14:59 Intake Total 2014 Output Total 1750 Balance 265 Lab Results - Last 24 hrs: Laboratory Results - last 24 hr 09/10/19 09/11/19 Range/Units 05:51 11:15 POC Glucose 216 H (60-110) mg/dL Hemoglobin A1c 6.4 H (4.5-6.2) % Med Orders - Current: Current Medications Amlodipine Besylate (Norvasc) 5 mg PO DAILY [facility] Last Admin: 09/11/19 08:44 Dose: 5 mg Heparin Sodium (Porcine) (Heparin Sodium) 5,000 units SUBCUT Q12H COLLEEN Last Admin: 09/11/19 03:17 Dose: 5,000 units Sodium Chloride (Normal Saline) 1,000 mls @ 125 mls/hr IV ASDIRECTED COLLEEN Last Admin: 09/11/19 03:19 Dose: 125 mls/hr Insulin Aspart (Novolog) 0 unit SUBCUT TIDAC [facility]; Protocol Sodium Chloride (Saline Flush) 10 ml FLUSH ASDIRECTED PRN PRN Reason: Keep Vein Open Last Admin: 09/09/19 22:17 Dose: 10 ml Sodium Chloride (Saline Flush) 2.5 ml FLUSH ASDIRECTED PRN PRN Reason: Keep Vein Open Last Admin: 09/09/19 22:17 Dose: 2.5 ml Discontinued Medications Amlodipine Besylate (Norvasc) 5 mg PO ONETIME ONE Stop: 09/10/19 05:39 Last Admin: 09/10/19 10:40 Dose: Not Given Amlodipine Besylate (Norvasc) 5 mg PO ONETIME ONE Stop: 09/10/19 10:46 Last Admin: 09/10/19 10:47 Dose: 5 mg Amlodipine Besylate (Norvasc) 5 mg PO ONETIME ONE Stop: 09/10/19 16:19 Last Admin: 09/10/19 17:06 Dose: 5 mg Clonidine HCl (Catapres) 0.1 mg PO ONETIME ONE Stop: 09/10/19 20:15 Last Admin: 09/10/19 20:52 Dose: 0.1 mg Clonidine HCl (Catapres) 0.1 mg PO ONETIME ONE Stop: 09/11/19 04:43 Last Admin: 09/11/19 05:10 Dose: 0.1 mg Diphenhydramine HCl (Benadryl) 25 mg IVPUSH ONETIME ONE Stop: 09/09/19 22:15 Last Admin: 09/09/19 22:17 Dose: 25 mg Diphenhydramine HCl (Benadryl) Confirm Administered Dose 50 mg .ROUTE .STK-MED ONE Stop: 09/09/19 22:14 Last Admin: 09/09/19 22:18 Dose: Not Given Sterile Water (Sterile Water For Injection) Confirm Administered Dose 20 mls @ as directed .ROUTE .STK-MED ONE Stop: 09/09/19 22:50 Last Admin: 09/10/19 08:47 Dose: Not Given Iopamidol (Isovue-370 (76%)) 100 ml IVPUSH ONETIME ONE Stop: 09/09/19 22:25 Last Admin: 09/09/19 22:24 Dose: 100 ml Labetalol HCl (Normodyne) 20 mg IVPUSH ONETIME ONE; Protocol Stop: 09/09/19 22:44 Last Admin: 09/09/19 22:55 Dose: 20 mg Labetalol HCl (Normodyne) 5 mg IVPUSH ONETIME ONE; Protocol Stop: 09/10/19 12:06 Last Admin: 09/10/19 12:30 Dose: 5 mg Lorazepam (Ativan) 1 mg IVPUSH ONETIME ONE Stop: 09/09/19 22:15 Last Admin: 09/09/19 22:16 Dose: 1 mg Lorazepam (Ativan) Confirm Administered Dose 2 mg .ROUTE .STK-MED ONE Stop: 09/09/19 22:14 Last Admin: 09/09/19 22:18 Dose: Not Given Sodium Chloride (Normal Saline) 10 ml IV ASDIRECTED PRN PRN Reason: IV Use Sterile Water (Sterile Water For Injection) 1.2 ml INJECT ONETIME ONE Stop: 09/09/19 22:44 Last Admin: 09/09/19 23:53 Dose: 1.2 ml Ziprasidone (Geodon) 20 mg IM ONETIME ONE Stop: 09/09/19 22:44 Last Admin: 09/09/19 23:07 Dose: 20 mg Ziprasidone (Geodon) Confirm Administered Dose 20 mg .ROUTE .STK-MED ONE Stop: 09/09/19 22:44 Last Admin: 09/09/19 23:53 Dose: Not Given
[2019-09-11 12:29] VITALS: BP 163/82; PULSE 58
== END 2019-09-11 13:30 | disposition home or self-care (01) | DRG 57 ==
LOC: MW.ED 21:32 → MW.MS 09-10 00:49
PROVIDERS: ADMIT Internal Medicine; ATTEND Internal Medicine
DX: G30.0 Alzheimer's disease with early onset (principal); N17.9 Acute kidney failure, unspecified; F02.80 Dementia in other diseases classified elsewhere, unspecified severity, without behavioral disturbance, psychotic disturbance, mood disturbance, and anxiety; N18.9 Chronic kidney disease, unspecified; I12.9 Hypertensive chronic kidney disease with stage 1 through stage 4 chronic kidney disease, or unspecified chronic kidney disease; E11.22 Type 2 diabetes mellitus with diabetic chronic kidney disease
CPT/HCPCS: 36415; 70450; 70450-26; 70496; 70496-26; 70498; 70498-26; 71045; 71045-26; 80048; 80053; 80305-QW; 80307; 81001; 82962; 83036; 83735; 84100; 84443; 84484; 85025; 85610; 85730; 96372; 96374; 96375; 99283; 99285-25; A9270-GY; J1200; J1644; J1815-GY; J2060; J3486; J3490; J7030; Q9967